=== PATIENT | female | born 1980 | race Caucasian/White ===

== ENCOUNTER 2020-01-23 18:39 | Emergency (ER) | payer BC ==
[2020-01-23] MEDS ORDERED: Lidocaine 1% MPF ** 5 ML VIAL INJ ONE (19:17)
[2020-01-23 19:45] VITALS: BP 121/80
--- NOTE | 2020-01-23 19:50 | UC ---
Laceration HPI - HPI Summary HPI Summary: 39-year-old woman comes in with chief complaint of laceration to the tip of the left thumb. Just prior to arrival she accidentally cut it with a kitchen knife while cutting vegetables. Patient reports she is up-to-date on her tetanus. Bleeding improved with direct pressure. Patient did wash out the laceration. - History Of Current Complaint Chief Complaint: UCLaceration Stated Complaint: CUT FINGER Time Seen by Provider: 01/23/20 19:01 Hx Last Menstrual Period: 01/18/2020 Pain Intensity: 2 - Allergies/Home Medications Allergies/Adverse Reactions: Allergies Allergy/AdvReac Type Severity Reaction Status Date / Time adhesive Allergy Rash Verified 01/23/20 19:08 amoxicillin Allergy Hives Verified 01/23/20 19:08 citalopram [From Celexa] Allergy Nightmares Verified 01/23/20 19:08 Home Medications: Home Medications Acetaminophen TAB* [Tylenol TAB*] 325 - 650 mg PO DAILY PRN 10/18/19 [History Confirmed 01/23/20] Albuterol HFA INHALER* [Ventolin HFA Inhaler*] 2 puff INH Q4H PRN 10/18/19 [ History Confirmed 01/23/20] Boswellia Leonila Extract 1 tab PO DAILY 10/18/19 [History Confirmed 01/23/20] Butalb/Acetamin/Caff TAB* [Fioricet TAB*] 1 - 2 tab PO DAILY PRN 10/18/19 [ History Confirmed 01/23/20] Calcium Carb/Mag Ox/Zinc Sulf [Calcium & Magnesium + Zin 334-134-5 mg] 3 tab PO DAILY 10/18/19 [History Confirmed 01/23/20] Cholecalciferol TAB* [Vitamin D TAB*] 1,000 unit PO DAILY 10/18/19 [History Confirmed 01/23/20] Cyclobenzaprine TAB* [Flexeril 10 MG TAB*] 5 mg PO DAILY 10/18/19 [History Confirmed 01/23/20] Docosahexanoic Acid [Dha Eva 3] 1 cap PO DAILY 10/18/19 [History Confirmed ] Famotidine TAB* [Pepcid 20 MG TAB*] 20 mg PO DAILY 10/18/19 [History Confirmed 01/23/20] Eva-3 Fatty Acids/Fish Oil [Fish Oil 1,000 mg Softgel] 1 cap PO DAILY [History Confirmed 01/23/20] Pnv No.95/Ferrous Fum/Folic AC [ Vitamin & Minera 28-0.8 mg] 1 tab PO DAILY 10/18/19 [History Confirmed 01/23/20] Progesterone, Micronized [Progesterone] 200 mg PO DAILY 10/18/19 [History Confirmed 01/23/20] Sertraline* [Zoloft*] 100 mg PO DAILY 10/18/19 [History Confirmed 01/23/20] Tumeric Cucumin Karolina 1 tab PO DAILY 10/18/19 [History Confirmed 01/23/20] Vitamin B Complex CAP* [B Complex CAP*] 1 cap PO DAILY 10/18/19 [History Confirmed 01/23/20] Jane Brito 1 tab PO DAILY 10/18/19 [History Confirmed 01/23/20] diPHENhydraMINE PO* [Benadryl PO 25 MG TAB*] 25 - 50 mg PO DAILY 10/18/19 [ History Confirmed 01/23/20] Ferrous Gluconate TAB* 65 mg PO DAILY 11/01/19 [History Confirmed 01/23/20] Magnesium Oxide [Magnesium] 400 mg PO DAILY 11/01/19 [History Confirmed 01/23/20 ] Cephalexin CAP* [Keflex CAP*] 500 mg PO TID #21 cap 01/23/20 [Rx] PMH/Surg Hx/FS Hx/Imm Hx Previously Healthy: Yes - Surgical History Surgical History: Yes Surgery Procedure, Year, and Place: appy, gallbladder, exploratory lap - Family History Known Family History: Positive: Non-Contributory - Social History Alcohol Use: None Substance Use Type: None Smoking Status (MU): Never Smoked Tobacco Review of Systems All Other Systems Reviewed And Are Negative: Yes Constitutional: Positive: Negative Skin: Positive: Other - SEE HPI Eyes: Positive: Negative ENT: Positive: Negative Respiratory: Positive: Negative Cardiovascular: Positive: Negative Motor: Positive: Negative Neurovascular: Positive: Negative Musculoskeletal: Positive: Negative Neurological/Mental Status: Positive: Negative Psychological: Positive: Negative Is Patient Immunocompromised?: No Physical Exam Triage Information Reviewed: Yes Appearance: Well-Appearing, No Pain Distress, Well-Nourished Vital Signs: Initial Vital Signs Temp 98.2 F 01/23/20 19:02 Pulse 79 01/23/20 19:02 Resp 16 01/23/20 19:02 BP 121/80 01/23/20 19:02 Pulse Ox 99 01/23/20 19:02 Vital Signs Reviewed: Yes Eye Exam: Normal Eyes: Positive: Conjunctiva Clear Neck: Positive: Supple Respiratory: Positive: No respiratory distress Musculoskeletal: Positive: Strength Intact, ROM Intact Neurological: Positive: Alert Psychological: Positive: Age Appropriate Behavior Skin: Positive: Other - 1.5 cm oval flap laceration of the tip of the left thumb. Thumb has full range of motion. The flap does not have good capillary refill. Laceration Repair - Laceration Repair 1 Description: Irregular - Oval flap Laceration tip of the left thumb Laceration Size After Repair: Length (cm) - 1.5 cm Modified For Repair: Yes Type Injection: Local Anesthesia Used: 1.0% Lido Irrigation With Pressure Irrigation Device: Yes Closure Material: Sutures - 4 Closure Method: Single Layer Suture Of: Skin Suture Type: Prolene - 5-0 Laceration Course/Dx - Course/Dx Course Of Treatment: The wound was clean. Discussed that if is any signs of infection she should start Keflex and if there is any concern she should get reevaluated. Sutures out in 8-10 days. - Diagnosis Provider Diagnosis: Laceration of thumb, left Discharge ED - Sign-Out/Discharge Documenting (check all that apply): Patient Departure All imaging exams completed and their final reports reviewed: No Studies - Discharge Plan Condition: Stable Disposition: HOME Prescriptions: Cephalexin CAP* [Keflex CAP*] 500 mg PO TID #21 cap Patient Education Materials: Finger Laceration (ED) Referrals: Rona Arredondo NP [Primary Care Provider] - Additional Instructions: FOLLOW UP WITH YOUR DOCTOR. Sutures out in 8-10 days. Start the antibiotics if there is any signs of infection. GET REEVALUATED IF NOT IMPROVED OR WORSE; SPREAD OF INFECTION OR ANY QUESTIONS OR CONCERNS. - Billing Disposition and Condition Condition: STABLE Disposition: Home
--- OUTSIDE RECORDS SUMMARY | 2020-01-23 19:52 | XMS REPORT | Continuity of Care Document ---
:1980 External Reference #:[id number] Author Name Yuriy Jaramillo MD (transmitted by agent of provider Diana Mason) Address [address] [place] [address] Care Team Providers Name Role Phone Rona Arredondo NP - Nurse Care Team Information Cardiac Monitor [phone] Practitioner Problems Active Problems Provider Date Asthma Trinh Bowden NP Onset: 10/07/2019 Gastroesophageal reflux disease Trinh Bowden NP Onset: 10/07/2019 Note: was on Nexium and Dexilant in 2013 time frame while in [place]; Migraine Trinh Bowden NP Onset: 10/07/2019 Pituitary adenoma Trinh Bowden NP Onset: 10/07/2019 Note: 2010 - asked her primary to "check hormones" with slight irregularity of her menses; w/u of elevated prolactin ; microadenoma and put on a med Dostinex (cabergoline) for a year by [facility]- has discussed with Dr Chatterjee and Nisha Hernandez; Hiatal hernia Trinh Bowden NP Onset: 10/07/2019 Iron deficiency Yuriy Jaramillo MD Onset: 08/18/2019 Note: very subtle with iron sat 9% 41 / 440 ferritin 58.2 this date Social History Type Date Description Comments Sex Unknown Tobacco Use Start: Unknown Never Smoked Cigarettes ETOH Use Rarely consumes alcohol Recreational Drug Use Denies Drug Use Tobacco Use Start: Unknown Patient has never smoked Smoking Status Reviewed: 01/02/20 Patient has never smoked Exercise Type/Frequency Yoga 1-2 times per week Allergies, Adverse Reactions, Alerts Active Allergies Reaction Severity Comments Date Celexa Nightmares 06/23/2019 Amoxicillin Hives 06/23/2019 Adhesive Rash 06/23/2019 Medications Active Medications SIG Qnty Indications Ordering Date Provider Omeprazole 1 by mouth in the 90caps K21.0 Yuriy T. 01/02/[address] morning 30 to 45 MD Clint minutes before breakfast Cyclobenzaprine HCL take 5mg at night 90tabs M62.838 Reji Lopez, 12/21 5mg before bedtime Tablets Fioricet Take one to two Unknown 11/02/2018 50-300-40mg capusles by mouth Capsules daily as needed Pepcid Take one tablet Unknown 11/02/2018 20mg Tablets by mouth daily Zoloft Take one tablet Unknown 11/02/2016 100mg Tablets by mouth every day Progesterone Micronized take one capsule Unknown 11/02/2014 by mouth daily 200mg Capsules Albuterol Sulfate HFA two puffs every Unknown 11/02/2014 four hours as 108(90Base) mcg/Act needed Aerosol Jane Lavell Brito Unknown Tumeric Cucumin Karolina Unknown Dha Unknown Fish Oil 1 tab by mouth Unknown 1000mg Capsules every morning Vitamin B Complex Take one tablet Unknown Tablets by mouth daily Vitamin D High Potency Take one capsule Unknown by mouth daily 1000Unit Capsules Zuagqzu-Qpvhehqcj-Fcqo 3 tablets by Unknown mouth daily 333-133-5mg Tablets Vitamin Take one tablet Unknown Tablets by mouth daily Tylenol Take 1-2 capsules Unknown 325mg Capsules by mouth as needed Benadryl Allergy Take one to two Unknown 25mg capsules by mouth Capsules daily Immunizations Description No Information Available Vital Signs Date Vital Result Comment 01/02/2020 3:56pm Height 66 inches 5'6" Weight 172.50 lb Heart Rate 79 /min BP Systolic 106 mmHg BP Diastolic 72 mmHg Respiratory Rate 16 /min O2 % BldC Oximetry 97 % BMI (Body Mass Index) 27.8 kg/m2 12/21/2019 8:36am Height 66 inches 5'6" Weight 171.00 lb Heart Rate 92 /min BP Systolic 121 mmHg BP Diastolic 74 mmHg BP Systolic Sitting 111 mmHg BP Diastolic Sitting 71 mmHg Body Temperature 96.9 F Pain Level 7 O2 % BldC Oximetry 98 % BMI (Body Mass Index) 27.6 kg/m2 Results Test Acquired Date Facility Test Result H/L Range Note Laboratory test 12/28/2019 [facility] Progesterone < 0.1 ng/mL [address] [place], [place] [id number] [phone] Laboratory test 11/01/2019 [facility] Clotest SEE RESULT [address] BEL[address] [place], [place] [id number] [phone] Surgical 11/01/2019 [facility] Surgical SEE RESULT [address] [place] [address] [phone] PDFReport SEE IMAGE Cytology 10/17/2019 [facility] Cytology SEE RESULT BELOW [address] [place] [address] [phone] PDFReport SEE IMAGE Iron & Iron Binding 10/11/2019 [facility] Iron 85 g/dL Normal 50-[address] [place], [place] [id number] [phone] Unsaturated Iron Binding < 429 g/dL Total Iron Binding Capacity 444 g/dL Normal 250-450 Transferrin 317 mg/dL Normal 203-362 % Iron Saturation 19 % Normal 15-55 Laboratory test 10/11/2019 [facility] Ferritin 31.2 Normal 11- [address] ng/mL [place], [place] [id number] [phone] CBC Auto Diff 10/11/2019 [facility] White Blood 5.6 Normal 3.5 -10.[address] Count 10^3/[place] [address] [phone] Red Blood Count 4.85 10^6/uL Normal 3.70-4.87 Hemoglobin 14.7 g/dL Normal 12.0-16.0 Hematocrit 41 % Normal 35-47 Mean Corpuscular Volume 85 fL Normal 80-97 Mean Corpuscular Hemoglobin 30 pg Normal 27-31 Mean Corpuscular HGB Conc 36 g/dL Normal 31-36 Red Cell Distribution Width 13 % Normal 10-15 Platelet Count 271 10^3/uL Normal 150-450 Mean Platelet Volume 7.5 fL Normal 7.4-10.4 Abs Neutrophils 3.1 10^3/uL Normal 1.5-7.7 Abs Lymphocytes 2.0 10^3/uL Normal 1.0-4.8 Abs Monocytes 0.4 10^3/uL Normal 0-0.8 Abs Eosinophils 0.1 10^3/uL Normal 0-0.6 Abs Basophils 0.1 10^3/uL Normal 0-0.2 Abs Nucleated RBC 0.0 10^3/uL Granulocyte % 55.5 % Lymphocyte % 35.8 % Monocyte % 6.7 % Eosinophil % 0.9 % Basophil % 1.1 % Nucleated Red Blood Cells % 0.1 Laboratory test 10/11/2019 [facility] C Reactive 2.35 mg/L Normal <8.[address] [place] [address] [phone] Erythrocyte Sed Rate 10 mm/Hr Normal 0-19 Urinalysis Profile 10/11/2019 [facility] Urine Color Denise [address] [place] [address] [phone] Urine Appearance Cloudy Urine Specific Hutchinson 1.009 Low 1.010-1.030 Urine pH 6.0 Normal 5-9 Urine Urobilinogen Negative Negative Urine Ketones Negative Negative Urine Protein Negative Negative Urine Leukocytes Negative Negative Urine Blood 3+ Abnormal Negative Urine Nitrite Negative Negative Urine Bilirubin Negative Negative Urine Glucose Negative Negative Urine White Blood Cell Absent Absent Urine Red Blood Cell 3+(>10/hpf) Abnormal Absent Urine Bacteria Absent Absent Urine Squamous Epithelial Cell Present Abnormal Absent Protein 10/11/2019 [facility] Total 7.2 g/dL 6.3 - Electrophoresis [address] Protein(Pep) 7.9 [place] [address] [phone] Albumin 3.7 g/dL 3.4-4.7 Alpha-1 Globulin 0.3 g/dL 0.1-0.3 Alpha-2 Globulin 0.9 g/dL 0.6-1.0 Beta Globulin 1.0 g/dL 0.7-1.2 Gamma Globulin 1.3 g/dL 0.6-1.6 Albumin/Globulin Ratio 1.05 Impression See Comment 5 CBC Auto 08/18/2019 [facility] White Blood 8.7 10^3/uL Normal 3.5-10.[address] [place] [address] [phone] Red Blood Count 5.02 10^6/uL High 3.70-4.87 Hemoglobin 15.2 g/dL Normal 12.0-16.0 Hematocrit 44 % Normal 35-47 Mean Corpuscular Volume 87 fL Normal 80-97 Mean Corpuscular Hemoglobin 30 pg Normal 27-31 Mean Corpuscular HGB Conc 35 g/dL Normal 31-36 Red Cell Distribution Width 12 % Normal 10-15 Platelet Count 227 10^3/uL Normal 150-450 Mean Platelet Volume 7.7 fL Normal 7.4-10.4 Abs Neutrophils 7.1 10^3/uL Normal 1.5-7.7 Abs Lymphocytes 0.9 10^3/uL Low 1.0-4.8 Abs Monocytes 0.6 10^3/uL Normal 0-0.8 Abs Eosinophils 0.1 10^3/uL Normal 0-0.6 Abs Basophils 0.0 10^3/uL Normal 0-0.2 Abs Nucleated RBC 0.0 10^3/uL Granulocyte % 80.9 % Lymphocyte % 10.6 % Monocyte % 7.4 % Eosinophil % 0.7 % Basophil % 0.4 % Nucleated Red Blood Cells % 0.0 Laboratory test 08/18/2019 [facility] Hemoglobin A1c 5.1 % Normal 4.0-5.6 [address] (Glyco HGB) [place] [address] [phone] Comp Metabolic 08/18/2019 [facility] Sodium 138 Normal 135- [address] mmol/[place] [address] [phone] Potassium 3.8 mmol/L Normal 3.5-5.0 Chloride 103 mmol/L Normal 101-111 Co2 Carbon Dioxide 28 mmol/L Normal 22-32 Anion Gap 7 mmol/L Normal 2-11 Calcium 9.6 mg/dL Normal 8.6-10.3 Albumin 4.4 g/dL Normal 3.2-5.2 Total Bilirubin 0.50 mg/dL Normal 0.2-1.0 Glucose 85 mg/dL Normal 70-100 Blood Urea Nitrogen 13 mg/dL Normal 6-24 Creatinine 0.67 mg/dL Normal 0.51-0.95 BUN/Creatinine Ratio 19.4 Normal 8-20 Total Protein 7.6 g/dL Normal 6.4-8.9 Globulin 3.2 g/dL Normal 2-4 Albumin/Globulin Ratio 1.4 Normal 1-3 Alkaline Phosphatase 65 U/L Normal 34-104 Alt 24 U/L Normal 7-52 Ast 17 U/L Normal 13-39 Egfr Non- 98.5 >60 Egfr 119.2 >60 7 Lipid Profile 08/18/2019 [facility] Triglycerides 78 mg/dL 8 (Trig/Chol/HDL) [address] [place] [address] [phone] Cholesterol 161 mg/dL 9 HDL Cholesterol 57.8 mg/dL 10 LDL Cholesterol 88 mg/dL 11 Iron & Iron Binding 08/18/2019 [facility] Iron 41 g/dL Low 50-[address] [place] [address] [phone] Unsaturated Iron Binding < 425 g/dL Total Iron Binding Capacity 440 g/dL Normal 250-450 Transferrin 314 mg/dL Normal 203-362 % Iron Saturation 9 % Low 15-55 Laboratory test 08/18/2019 [facility] CRP High 33.60 mg/L High <2.00 finding [address] [place] [address] [phone] TSH (Thyroid Stim Horm) 0.97 mcIU/mL Normal 0.34-5.60 Free T4 (Free Thyroxine) 0.83 ng/dL Normal 0.61-1.12 Thyroxine 7.64 g/dL Normal 6.09-12.23 T3 Free 3.90 pg/mL Normal 2.5-3.9 T3 Total 107 ng/dL Normal 87-178 Ferritin 58.2 ng/mL Normal 11-307 Thyroid 08/18/2019 [facility] Thyroid 0.84 Normal <9 Autoantibodies 101 Peroxidase IU/[place] [address] Antibodies [phone] Thyroglobulin Antibody II 0.0 IU/mL <4.0 Laboratory test 08/18/2019 [facility] Folic Acid > 20.00 > 3.99 finding 101 (Folate) ng/[place] [address] [phone] Vitamin B12 871 pg/mL Normal 180-914 12 Insulin Level 10.3 mcIU/mL Normal 2.0-16.0 Vitamin D Total 25(Oh) 30.1 ng/mL Normal 20-50 13 Magnesium 2.0 mg/dL Normal 1.9-2.7 Arthritis Panel 08/18/2019 [facility] Uric Acid 5.4 mg/dL Normal 2.3-6.[address] [place] [address] [phone] Rheumatoid Factor < 10 IU/mL Normal <15 Erythrocyte Sed Rate 39 mm/Hr High 0-19 Anti-Nuclear Antibody 0.1 U 14 Cyclic Citrullinated Peptide <15.6 U 15 Interpretation See Comment 16 Laboratory test 08/18/2019 [facility] Methylmalonic 0.18 <= 0.[address] Acid Mma nmol/[place] [address] [phone] Homocysteine 6 mcmol/L 18 Heavy Metal Blool 08/18/2019 [facility] Arsenic <1 ng/mL 0- [address] [place] [address] [phone] Lead <1.0 g/dL 0.0-4.9 20 Mercury <1 ng/mL 0-9 21 Cadmium 0.3 ng/mL 0.0-4.[address] [facility] <SEE NOTE> 23 [facility] [id number] [place] [address] Guardian First Name CHERELLE Ramos Guardian Last Name CHUYITA Venous/Capillary Heavy Metals Venous Patient Race WHITE Submitting Laboratory 24 Laboratory test 08/18/2019 [facility] Copper, 1.33 g/mL 0.75-1.45 25 finding [address] [place] [address] [phone] Zinc Serum 0.78 g/mL 0.66-1.10 26 Vitamin B1 (Whole Blood) 145 nmol/L 70-180 27 T3 Reverse 20 ng/dL 10-24 28 Vitamin B6 08/18/2019 [facility] Pyridoxal 5-Phosphate 10 g/L 5-[address] [place] [address] [phone] Pyridoxic Acid 8 g/L 3-30 30 Celiac Hla 08/18/2019 [facility] Hla-Dqa1 SEE BELOW [address] [place] [address] [phone] [id number]-[id number] SEE BELOW 32 Celiac Gene Pairs Present? No Celiac Gene Interpretation See Comment 33 MTHFR 08/18/2019 [facility] MTHFR C677T Heterozygous Abnormal Negative Mutation [address] Mutation Detection [place], [place] [address] [phone] MTHFR Interpretation See Comment 34 MTHFR Reviewed By See Comment 35 MTHFR [id number] Mutation Heterozygous Abnormal Negative Mthac Interpretation See Comment 36 Mthac Reviewed By See Comment 37 1 Female reference ranges for Progesterone: Follicular phase.......0.3 - 1.5 ng/ml Mid-luteal phase.......5.2 - 18.5 ng/ml Postmenopausal.........< 0.8 ng/ml 1st trimester.........4.7 - 50.0 ng/ml 2nd trimester.........19.4 - 45.3 ng/ml 2 SEE RESULT BELOW Name: CHERELLE BOOGIE Rachel : [address]: Yuriy Jaramillo MD Acct: [id number] Unit: [id number] AGE: 39 Location: ENDO Re11/01/19 SEX: F Status: REG REF SPEC: [id number] DYAN: 11/01/[address]: Yuriy Jaramillo MD REQ: [id number] RECD: 11/01/193679 STATUS: ADRIANA SALGADO DR: Rona Arredondo RECORDS ASSOCIATE _ SOURCE: GAS ANTRUM SPDESC: ORDERED: Clotest Procedure Result Reported Site Clotest Final 11/02/19- 0700 ML Clotest Negative * ML - Main Lab . END OF REPORT DEPARTMENT OF PATHOLOGY, [address] [place] [address] Rex Guy M.D. Director [facility] # [id number] 3 SEE RESULT BELOW Name: TYRONECHERELLE CHILDS Rachel : [address]: Yuriy Jaramillo MD Acct: [id number] Unit: [id number] AGE: 39 Location: ENDO Re11/01/19 SEX: F Status: DEP REF SPEC: [id number] DYAN: 11/01/[address] [facility] [address]: Yuriy Jaramillo MD REQ: [id number] RECD: 11/01/196 STATUS: CASSIE SALGADO DR: Rona Arredondo RECORDS ASSOCIATE _ ORDERED: LEVEL 4/2 ADDENDUM An H. pylori immunohistochemical stain, with appropriately reacting controls , was performed on sections cut from specimen 2 and is negative for Helicobacter organisms. Addendum Signed (signature on file) Trupti Keyes MD 01/19 1115 FINAL DIAGNOSIS 1. Duodenum, third portion, biopsy: -- Benign small intestinal mucosa with no significant pathologic abnormalities. -- No evidence of villous blunting or increased intraepithelial lymphocytes. 2. Stomach, body, biopsy: -- Body-type gastric mucosa with moderate chronic gastritis; see comment. COMMENT: An H. pylori immunohistochemical stain is pending for specimen 2 and the results will be reported in an addendum. CLINICAL HISTORY Pain left costal margin - post easting; heartburn CONTINUED ON NEXT PAGE DEPARTMENT OF PATHOLOGY, [address] [place] [address] Rex Guy M.D. Director [facility] # [id number] POST-OPERATIVE DIAGNOSIS EGD: larynx - normal; esophagus - erosions at 36 cm; loose small wide hiatal hernia; stomach - antral gastritis; bile in FGP's; duodenum - normal; conclusions: hiatal hernia; gastroesophageal reflux disease; gastritis; multiple symptoms GROSS DESCRIPTION 1. The specimen is received in formalin labeled, Biopsy Third Portion Duodenum, and consists of two powell-pink irregular to polypoid soft tissue fragments measuring 0.7 x 0.4 x 0.3 cm and 0.9 x 0.4 x 0.3 cm, which are entirely submitted in one cassette. 2. The specimen is received in formalin labeled, Biopsy Gastric Body, and consists of two powell-pink irregular to polypoid soft tissue fragments measuring 2.8 x 0.4 x 0.2 cm and 0.9 x 0.3 x 0.3 cm, which are entirely submitted in one cassette. Signed by and Reported on: Trupti Keyes MD 11/03/19 1232 END OF REPORT DEPARTMENT OF PATHOLOGY, [address] [place] [address] Rex Guy M.D. Director [facility] # [id number] 4 SEE RESULT BELOW Name: CHERELLE BOOGIE : [address]: Jerson Chatterjee MD Acct: [id number] Unit: [id number] AGE: 38 Location: [facility] Re10/17/19 SEX: F Status: REG REF SPEC: [id number] DYAN: 10/17/[address]: Jerson Chatterjee MD REQ: [id number] RECD: 10/17/19 STATUS: SOUT _ ORDERED: TP IMAGE ANALYS, HPV/Thin Prep, HPV 16/18 GENE COMMENTS: [id number] FINAL DIAGNOSIS Negative for Intraepithelial lesion or Malignancy HPV RESULTS Date Time Test Result Flag (u) Normal Range 10/17/19 1600 HPV HAWA RFLX GE Negative Negative The high-risk HPV types detected by the assay include: 16, 18, 31, 33, 35, 39, 45, 51, 52, 56, 58, 59, 66, and 68. SPECIMEN(S) RECEIVED A. Ectocervical/Endocervical CYTOLOGY ADEQUACY Specimen Adequacy: Satisfactory of evaluation Transformation zone component identified CONTINUED ON NEXT PAGE DEPARTMENT OF PATHOLOGY, [address] [place] [address] Rex Guy M.D. Director [facility] # [id number] CYTOLOGY PATIENT INFORMATION Patient Information: HPV: High risk HPV RNA testing regardless of pap results. HPV 16/18 Genotype Reflex Actual Specimen Date: 10/17/19 Last Menstrual Date: 10/08/19 ?: N Post Menopausal?: N Hysterectomy?: N Previous Abnormal Pap Smears?:N Signed by and Reported on: LIAM Donnelly (ASCP) 2533 This Pap test was evaluated with the assistance of the [employer] Test Imaging System. Due to cytologic findings at the liability claims examiner microscope, comprehensive manual rescreening by a Airways Control Specialist may be required. The Pap Smear is a screening test designed to aid in the detection of premalignant and malignant conditions of the uterine cervix. It is not a diagnostic procedure and should not be used as the sole means of detecting cervical cancer. Both false- positive and false- negative reports do occur. Depending on your risk status, a Pap smear should be obtained and evaluated every 1-3 years. END OF REPORT DEPARTMENT OF PATHOLOGY, [address] [place] [address] Rex Guy M.D. Director [facility] # [id number] 5 RESULT: No apparent monoclonal protein on serum electrophoresis. Test Performed by: [place] [address] Airport Tower Controller: Danny Shah M.D. Ph.D.; CLIA# [id number] 6 Therapeutic target for the treatment of diabetes mellitus patients is <7% HBA1C, and in selective patients <6.0%. Please refer to [place] Diabetes Association diabetic care guidelines for further information. 7 Because ethnic data is not always readily available, this report includes an eGFR for both -Americans and non- Americans. The National Kidney Disease Education Program (NKDEP) does not endorse the use of the MDRD equation for patients that are not between the ages of 18 and 70, are , have extremes of body size, muscle mass, or nutritional status, or are non- or non-. According to the National Kidney Foundation, irrespective of diagnosis, the stage of the disease is based on the level of kidney function: Stage Description GFR(mL/min/1.73 m(2)) 1 Kidney damage with normal or decreased GFR 90 2 Kidney damage with mild decrease in GFR 60-89 3 Moderate decrease in GFR 30-59 4 Severe decrease in GFR 15-29 5 Kidney failure <15 (or dialysis) 8 Desirable: <150 Borderline High: 150-199 High: 200-499 Very High: >500 9 Desirable: <200 Borderline High: 200-239 High: >239 10 Low: <40 Desirable: 40-60 High: >60 11 Desirable: <100 Near Optimal: 100-129 Borderline High: 130-159 High: 160-189 Very High: >189 12 Normal Range 180 to 914 Indeterminate Range 145 to 180 Deficient Range <145 13 Total 25-Hydroxyvitamin D2 and D3 (25-OH-VitD) <10 ng/mL (severe deficiency) 10-19 ng/mL (mild to moderate deficiency) 20-50 ng/mL (optimum levels) 51-80 ng/mL (increased risk of hypercalciuria) >80 ng/mL (toxicity possible) 14 REFERENCE VALUE <=1.0 (Negative) 15 REFERENCE VALUE <20.0 (Negative) 16 Tests for antibodies to dsDNA and JESSICA antigens are not performed automatically unless the MAX result is > or = 3.0 U. Studies performed at [facility] indicate that positive MAX results <3.0 U are rarely accompanied by positive second order tests. Test Performed by: [facility] - [facility] [address] [place] [address] Airport Tower Controller: Danny Shah M.D. Ph.D.; CLIA# [id number] 17 ADDITIONAL INFORMATION This test was developed and its performance characteristics determined by [facility] in a manner consistent with CLIA requirements. This test has not been cleared or approved by the U.S. Food and Drug Administration. Test Performed by: [facility] - [address] [address] Airport Tower Controller: Danny Shah M.D. Ph.D.; CLIA# [id number] 18 REFERENCE VALUE <=13 (Fasting) ADDITIONAL INFORMATION This test was developed and its performance characteristics determined by [facility] in a manner consistent with CLIA requirements. This test has not been cleared or approved by the U.S. Food and Drug Administration. Test Performed by: [facility] - [address] [address] Airport Tower Controller: Danny Shah M.D. Ph.D.; CLIA# [id number] 19 ADDITIONAL INFORMATION This test was developed and its performance characteristics determined by [facility] in a manner consistent with CLIA requirements. This test has not been cleared or approved by the U.S. Food and Drug Administration. 20 ADDITIONAL INFORMATION Testing performed by Inductively Coupled Plasma-Mass Spectrometry (ICP-MS). This test was developed and its performance characteristics determined by [facility] in a manner consistent with CLIA requirements. This test has not been cleared or approved by the U.S. Food and Drug Administration. 21 ADDITIONAL INFORMATION This test was developed and its performance characteristics determined by [facility] in a manner consistent with CLIA requirements. This test has not been cleared or approved by the U.S. Food and Drug Administration. 22 ADDITIONAL INFORMATION This test was developed and its performance characteristics determined by [facility] in a manner consistent with CLIA requirements. This test has not been cleared or approved by the U.S. Food and Drug Administration. 23 13 [employer] vascular solution 24 Test Performed by: [facility] [place] [address] Airport Tower Controller: Danny Shah M.D. Ph.D.; CLIA# [id number] 25 ADDITIONAL INFORMATION This test was developed and its performance characteristics determined by [facility] in a manner consistent with CLIA requirements. This test has not been cleared or approved by the U.S. Food and Drug Administration. Test Performed by: [facility] [place] [address] Airport Tower Controller: Danny Shah M.D. Ph.D.; CLIA# [id number] 26 ADDITIONAL INFORMATION This test was developed and its performance characteristics determined by [facility] in a manner consistent with CLIA requirements. This test has not been cleared or approved by the U.S. Food and Drug Administration. Test Performed by: [facility] [place] [place] [address] Airport Tower Controller: Danny Shah M.D. Ph.D.; CLIA# [id number] 27 ADDITIONAL INFORMATION This test was developed and its performance characteristics determined by [facility] in a manner consistent with CLIA requirements. This test has not been cleared or approved by the U.S. Food and Drug Administration. Test Performed by: [facility] [place] [address] Airport Tower Controller: Danny Shah M.D. Ph.D.; CLIA# [id number] 28 ADDITIONAL INFORMATION This test was developed and its performance characteristics determined by [facility] in a manner consistent with CLIA requirements. This test has not been cleared or approved by the U.S. Food and Drug Administration. Test Performed by: [facility] - [address] [address] Airport Tower Controller: Danny Shah M.D. Ph.D.; CLIA# [id number] 29 ADDITIONAL INFORMATION This test was developed and its performance characteristics determined by [facility] in a manner consistent with CLIA requirements. This test has not been cleared or approved by the U.S. Food and Drug Administration. 30 ADDITIONAL INFORMATION This test was developed and its performance characteristics determined by [facility] in a manner consistent with CLIA requirements. This test has not been cleared or approved by the U.S. Food and Drug Administration. Test Performed by: [facility] - [address] [address] Airport Tower Controller: Danny Shah M.D. Ph.D.; CLIA# [id number] 31 RESULT: 05,05 REFERENCE VALUE Not Applicable 32 RESULT: 03:01,03:01 DQ Serologic Equivalent: 7,7 REFERENCE VALUE Not Applicable 33 The absence of HLA celiac permissive genes would make the presence of celiac disease unlikely. ADDITIONAL INFORMATION Method: Molecular typing of HLA antigens performed using reverse SSOP and/or SSP methods, reported as serological equivalents and low to medium resolution molecular values. Test Performed by: [facility] - [address] [address] Airport Tower Controller: Danny Shah M.D. 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 MTHFR C677T carriers are not at increased risk for thrombosis in the absence of hyperhomocysteinemia. In the absence of alternative causes, heterozygous carriers of MTHFR C677T are not at increased risk for hyperhomocysteinemia. Hyperhomocysteinemia is a relatively weak risk factor for both venous thromboembolism and arterial thrombosis. The MTHFR C677T gene mutation test does not detect other causes of hyperhomocysteinemia due to acquired disorders (renal failure, zinc deficiency, leukemia, psoriasis, or antifolate drug therapy). If clinically indicated, suggest Coagulation Consultation 53251 (Thrombophila Profile) to complete the evaluation for an inherited or acquired thrombosing disorder (i.e., thrombophilia). Consider genetic consultation and counseling of potentially affected family members regarding laboratory testing. ADDITIONAL INFORMATION This test is a direct mutation analysis using PCR amplification, signal generation and release by cleavage of sequence specific alleles ([employer], [place], [place], [place]). This test has been modified from the frog catcher's instructions. Its performance characteristics were determined by [facility] in a manner consistent with CLIA requirements. This test has not been cleared or approved by the U.S. Food and Drug Administration. 35 RESULT: Natalia Pruitt M.D. 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 MTHAC T3335V carriers are not at increased risk for thrombosis in the absence of hyperhomocysteinemia. In the absence of alternative causes, heterozygous carriers of MTHAC M7171R are not at increased risk for hyperhomocysteinemia. Hyperhomocysteinemia is a relatively weak risk factor for both venous thromboembolism and arterial thrombosis. The MTHAC A0492V gene mutation test does not detect other causes of hyperhomocysteinemia due to acquired disorders (renal failure, zinc deficiency, leukemia, psoriasis, or antifolate drug therapy). If clinically indicated, suggest Coagulation Consultation 37170 (Thrombophila Profile) to complete the evaluation for an inherited or acquired thrombosing disorder (i.e., thrombophilia). Consider genetic consultation and counseling of potentially affected family members regarding laboratory testing. ADDITIONAL INFORMATION This test is a direct mutation analysis using PCR amplification, signal generation and release by cleavage of sequence specific alleles ([employer], [place], [place], [place]). This test has been modified from the frog catcher's instructions. Its performance characteristics were determined by [facility] in a manner consistent with CLIA requirements. This test has not been cleared or approved by the U.S. Food and Drug Administration. 37 RESULT: Natalia Pruitt M.D. This test is a direct mutation analysis using PCR amplification, signal generation and release by cleavage of sequence specific alleles ([employer], [place], [place], [place]). This test has been modified from the frog catcher's instructions. Its performance characteristics were determined by [facility] in a manner consistent with CLIA requirements. This test has not been cleared or approved by the U.S. Food and Drug Administration. Test Performed by: [place] [address] [employer] Controller: Danny Shah M.D. Ph.D.; CLIA# [id number] Procedures Date Code Description Status 12/21/2019 40111 Trigger PT Inj(S) Single Or Multiple Points 1 Or 2 Completed Muscles 11/01/2019 91582 Endoscopy Upper GI Biopsy Completed 11/01/2019 02132248 Colonoscopy Completed Medical Devices Description No Information Available Encounters Type Date Location Provider Dx Diagnosis Office Visit 01/02/2020 [facility] Yuriy Meraz K21.0 Gastro- esophageal 3:45p MD Clint reflux disease with esophagitis K44.9 Diaphragmatic hernia without obstruction or gangrene M79.7 Fibromyalgia Office Visit 12/21/2019 11:00a [facility] Raquel Hernandez NP M79.7 Fibromyalgia [facility] R14.0 Abdominal distension (gaseous) N80.9 Endometriosis, unspecified E72.12 Methylenetetrahydrofolate reductase deficiency F32.81 Premenstrual dysphoric disorder K21.9 Gastro-esophageal reflux disease without esophagitis Office Visit 12/02/2019 11:30a [facility] Sen, R10.32 Left lower [facility] quadrant pain N94.6 Dysmenorrhea, unspecified N92.0 Excessive and frequent menstruation with regular cycle N80.9 Endometriosis, unspecified Office Visit 11/07/2019 11:00a [facility] Haider Camacho, S76.112A Strain of left at [place] M.D. 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 [facility] MD Sen exam (general) (routine) w/o abn findings R10.32 Left lower quadrant pain Office 10/07/2019 [facility] Trinh K21.0 Gastro-esophageal Visit 9:15a [place] reflux disease with ADRIANA Bowden esophagitis D64.9 Anemia, unspecified R10.84 Generalized abdominal pain Office Visit 09/09/2019 11:00a [facility] Reji Lopez, M54.2 [facility] M62.838 Other muscle spasm M79.7 Fibromyalgia R70.0 Elevated erythrocyte sedimentation rate D50.9 Iron deficiency anemia, unspecified Office Visit 08/19/2019 9:00a [facility] Raquel Hernandez, G89.4 Chronic pain [facility] RECORDS ASSOCIATE syndrome R53.82 Chronic fatigue, unspecified Assessments Date Code Description Provider 01/02/2020 K21.0 Gastro-esophageal reflux disease with Yuriy Jaramillo MD esophagitis 01/02/2020 K44.9 Diaphragmatic hernia without obstruction Yuriy Jaramillo MD or gangrene 01/02/2020 M79.7 Fibromyalgia Yuriy Jaramillo MD 12/21/2019 M79.7 Fibromyalgia Raquel Hernandez NP 12/21/2019 M62.838 Other muscle spasm Reji Lopez MD 12/21/2019 R14.0 Abdominal distension (gaseous) Raquel Hernandez NP 12/21/2019 M79.7 Fibromyalgia Reji Lopez MD 12/21/2019 N80.9 Endometriosis, unspecified Raquel Hernandez NP 12/21/2019 E72.12 Methylenetetrahydrofolate reductase Raquel Hernandez NP deficiency 12/21/2019 F32.81 Premenstrual dysphoric disorder Raquel Hernandez NP 12/21/2019 K21.9 Gastro-esophageal reflux disease without Raquel Hernandez NP esophagitis 12/02/2019 R10.32 Left lower quadrant pain Jerson Chatterjee MD 12/02/2019 N94.6 Dysmenorrhea, unspecified Jerson Chatterjee MD 12/02/2019 N92.0 Excessive and frequent menstruation with Jerson Chatterjee MD regular cycle 12/02/2019 N80.9 Endometriosis, unspecified Jerson Chatterjee MD 11/16/2019 G89.4 Chronic pain syndrome Raquel Hernandez NP 11/07/2019 S76.112A Strain of left quadriceps muscle, fascia Haider Camacho M.D. and tendon, initial encounter 11/01/2019 K29.50 Unspecified chronic gastritis without Yuriy Jaramillo MD bleeding 11/01/2019 K21.0 Gastro-esophageal reflux disease with Yuriy Jaramillo MD esophagitis 11/01/2019 K44.9 Diaphragmatic hernia without obstruction Yuriy Jaramillo MD or gangrene 10/17/2019 Z01.419 Encounter for gynecological examination Jerson Chatterjee MD (general) (routine) without abnormal findings 10/17/2019 R10.32 Left lower quadrant pain Jerson Chatterjee MD 10/07/2019 K21.0 Gastro-esophageal reflux disease with Trinh Bowden esophagitis RECORDS ASSOCIATE 10/07/2019 D64.9 Anemia, unspecified Trinh Bowden NP 10/07/2019 R10.84 Generalized abdominal pain Trinh Bowden NP 09/09/2019 M54.2 Neck pain Reji Lopez MD 09/09/2019 M62.838 Muscle spasms of head And/Or neck Reji Lopez MD 09/09/2019 M79.7 Fibromyalgia Reji Lopez MD 09/09/2019 R70.0 Esr raised Reji Lopez MD 09/09/2019 D50.9 Iron deficiency anemia Reji Lopez MD 08/19/2019 G89.4 Chronic pain syndrome Raquel Hernandez NP 08/19/2019 R53.82 Chronic fatigue, unspecified Raquel Hernandez NP Plan of Treatment Future Appointment(s):04/02/2020 3:45 pm - Yuriy Jaramillo MD at [facility] Bjusfcoaiqsxvjjw82/25/2020 8:00 am - Raquel Hernandez NP at [facility]02/22/2020 8:00 am - Reji Lopez MD at [facility]10/22/2020 9:30 am - Jerson Chatterjee MD at [facility]01/02/2020 - Yuriy Jaramillo MDK21.0 Gastro-esophageal reflux disease with esophagitisNew Medication:Omeprazole 40 mg - 1 by mouth in the morning 30 to 45 minutes before umgfhkrwoZ71.9 Diaphragmatic hernia without obstruction or ierdxcntV94.7 Fibromyalgia Functional Status Description No Information Available Mental Status Description No Information Available Referrals Refer to Dr Reason for Referral Status Appt Date Yuriy Jaramillo MD History of gastric ulcer with ongoing GERD Sent 2018 symptoms and iron deficiency anemia; please evaluate and treat [address] [place] [address] [phone] Anastacio Hillman MD Sent 09/09/[address] [place] [address] [place] [address] [phone]
--- OUTSIDE RECORDS SUMMARY | 2020-01-23 19:52 | XMS REPORT | Continuity of Care Document ---
:1980 External Reference #:[id number] Author Name Reji Lopez MD (transmitted by agent of provider Sherly Warren) Address [address] [place] [id number] Care Team Providers Name Role Phone Rona Arredondo NP - Nurse Care Team Information Mine Promotor [phone] Practitioner Problems Active Problems Provider Date Asthma Trinh Bowden NP Onset: 10/07/2019 Gastroesophageal reflux disease Trinh Bowden NP Onset: 10/07/2019 Anemia Trinh Bowden NP Onset: 10/07/2019 Migraine Trinh Bowden NP Onset: 10/07/2019 Pituitary adenoma Trinh Bowden NP Onset: 10/07/2019 Note: microadenoma Hiatal hernia Trinh Bowden NP Onset: 10/07/2019 Social History Type Date Description Comments Sex Unknown Tobacco Use Start: Unknown Never Smoked Cigarettes ETOH Use Rarely consumes alcohol Recreational Drug Use Denies Drug Use Tobacco Use Start: Unknown Patient has never smoked Smoking Status Reviewed: 12/21/19 Patient has never smoked Exercise Type/Frequency Yoga 1-2 times per week Allergies, Adverse Reactions, Alerts Active Allergies Reaction Severity Comments Date Celexa Nightmares 06/23/2019 Amoxicillin Hives 06/23/2019 Adhesive Rash 06/23/2019 Medications Active Medications SIG Qnty Indications Ordering Date Provider Cyclobenzaprine HCL take 5mg at 90tabs M62.838 Reji Lopez, 12/21/2019 5mg night before MD Tablets bedtime Fioricet Take one to two Unknown 11/02/2018 50-300-40mg capusles by Capsules mouth daily as needed Pepcid Take one tablet [...] by mouth Unknown 1000mg Capsules every morning Cyclobenzaprine HCL Armas, Nhi 5mg A, N.P. Tablets Vitamin B Complex Take one tablet Unknown Tablets by mouth daily Vitamin D High Potency Take one capsule Unknown by mouth daily 1000Unit Capsules Hrmuuzp-Kdrvmmisl-Rnnd 3 tablets by Unknown mouth daily 333-133-5mg Tablets Vitamin Take one tablet Unknown Tablets by mouth daily Tylenol Take 1-2 Unknown 325mg Capsules capsules by mouth as needed Benadryl Allergy Take one to two Unknown 25mg capsules by Capsules mouth daily Immunizations Description No Information Available Vital Signs Date Vital Result Comment 12/21/2019 8:36am Height 66 inches 5'6" Weight 173.00 lb Heart Rate 92 /min BP Systolic 121 mmHg BP Diastolic 74 mmHg Body Temperature 96.9 F Pain Level 7 O2 % BldC Oximetry 98 % BMI (Body Mass Index) 27.9 kg/m2 12/02/2019 11:40am Height 66 inches 5'6" Weight 175.00 lb Heart Rate 96 /min BP Systolic 114 mmHg BP Diastolic 70 mmHg O2 % BldC Oximetry 97 % BMI (Body Mass Index) 28.2 kg/m2 Results Test Acquired Date Facility Test Result H/L Range Note Laboratory test 11/01/2019 [facility] Clotest SEE RESULT [address] [place] [address] [phone] Surgical 11/01/2019 [facility] Surgical SEE RESULT [address] [place] [address] [phone] PDFReport SEE IMAGE Cytology 10/17/2019 [facility] Cytology SEE RESULT BELOW [address] [place] [address] [phone] PDFReport SEE IMAGE Iron & Iron Binding 10/11/2019 [facility] Iron 85 g/dL Normal 50-[address] [place] [address] [phone] Unsaturated Iron Binding < 429 g/dL Total Iron Binding Capacity 444 g/dL Normal 250-450 Transferrin 317 mg/dL Normal 203-362 % Iron Saturation 19 % Normal 15-55 Laboratory test 10/11/2019 [facility] Ferritin 31.2 Normal 11- [address] ng/[place] [address] [phone] CBC Auto Diff 10/11/2019 [facility] White Blood 5.6 Normal 3.5 -10.[address] Count 10^3/[place] [address] [phone] Red Blood Count 4.85 10^6/uL Normal 3.70-4.87 [...] Blood Cells % 0.1 Laboratory test 10/11/2019 [facility] C Reactive 2.35 mg/L Normal <8.[address] [place] [address] [phone] Erythrocyte Sed Rate 10 mm/Hr Normal 0-19 Urinalysis Profile 10/11/2019 [facility] Urine Color [address] [address] [place] [address] [phone] Urine Appearance Cloudy Urine Specific [place] 1.009 Low 1.010-1.030 Urine pH 6.0 Normal [...] Epithelial Cell Present Abnormal Absent Protein 10/11/2019 [facility] Total 7.2 g/dL 6.3 - Electrophoresis [address] Protein(Pep) 7.9 [place] [address] [phone] Albumin 3.7 g/dL 3.4-4.7 Alpha-1 Globulin 0.3 g/dL 0.1-0.3 Alpha-2 Globulin 0.9 g/dL 0.6-1.0 Beta Globulin 1.0 g/dL 0.7-1.2 Gamma Globulin 1.3 g/dL 0.6-1.6 Albumin/Globulin Ratio 1.05 Impression See Comment 4 MTHFR 08/18/2019 [facility] MTHFR C677T Heterozygous Abnormal Negative Mutation [address] [place] [address] [phone] MTHFR Interpretation See Comment 5 MTHFR Reviewed By See Comment 6 MTHFR R7035a Mutation Heterozygous Abnormal Negative Mthac Interpretation See Comment 7 Mthac Reviewed By See Comment 8 Celiac Hla 08/18/2019 [facility] Hla-Dqa1 SEE BELOW [address] [place] [address] [phone] Hla-DQB1 SEE BELOW 10 Celiac Gene Pairs Present? No Celiac Gene Interpretation See Comment 11 Vitamin B6 08/18/2019 [facility] Pyridoxal 5-Phosphate 10 g/L 5-[address] [place] [address] [phone] Pyridoxic Acid 8 g/L 3-30 13 Laboratory test 08/18/2019 [facility] Copper, 1.33 g/mL 0.75-1.[address] [place] [address] [phone] Zinc Serum 0.78 g/mL 0.66-1.10 15 Vitamin B1 (Whole Blood) 145 nmol/L 70-180 16 T3 Reverse 20 ng/dL 10-24 17 Heavy Metal Blool 08/18/2019 [facility] Arsenic <1 ng/mL 0- [address] [place] [address] [phone] Lead <1.0 g/dL 0.0-4.9 19 Mercury <1 ng/mL 0-9 20 Cadmium 0.3 ng/mL 0.0-4.[address] <SEE NOTE> [facility] [place] [address] [facility] Guardian First Name CHERELLE Ramos Guardian Last Name HCUYITA Venous/Capillary Heavy Metals Venous Patient Race WHITE Submitting Laboratory 23 Laboratory test 08/18/2019 [facility] Methylmalonic 0.18 <= 0.40 24 [address] [facility] Acid Mma nmol/[place] [address] [phone] Homocysteine 6 mcmol/L 25 Arthritis Panel 08/18/2019 [facility] Uric Acid 5.4 mg/dL Normal 2.3-6.[address] [place] [address] [phone] Rheumatoid Factor < 10 IU/mL Normal <15 Erythrocyte Sed Rate 39 mm/Hr High 0-19 Anti-Nuclear Antibody 0.1 U 26 Cyclic Citrullinated Peptide <15.6 U 27 Interpretation See Comment 28 CBC Auto 08/18/2019 [facility] White Blood 8.7 10^3/uL Normal 3.5-10.[address] [place] [address] [phone] Red Blood Count 5.02 10^6/uL High 3.70-4.87 [...] Blood Cells % 0.0 Laboratory test 08/18/2019 [facility] Hemoglobin A1c 5.1 % Normal 4.0-5.[address] (Glyco HGB) [place] [address] [phone] Comp Metabolic 08/18/2019 [facility] Sodium 138 Normal 135- [address] mmol/[place] [address] [phone] Potassium 3.8 mmol/L Normal 3.5-5.0 Chloride 103 [...] Egfr Non- 98.5 >60 Egfr 119.2 >60 30 Lipid Profile 08/18/2019 [facility] Triglycerides 78 mg/dL 31 (Trig/Chol/HDL) [address] [place] [address] [phone] Cholesterol 161 mg/dL 32 HDL Cholesterol 57.8 mg/dL 33 LDL Cholesterol 88 mg/dL 34 Laboratory test 08/18/2019 [facility] Folic Acid > 20.00 > 3.99 finding (Folate) ng/mL [place], [place] [address] [phone] Vitamin B12 871 pg/mL Normal 180-914 35 Insulin Level 10.3 mcIU/mL Normal 2.0-16.0 Vitamin D Total 25(Oh) 30.1 ng/mL Normal 20-50 36 Magnesium 2.0 mg/dL Normal 1.9-2.7 Thyroid 08/18/2019 [facility] Thyroid 0.84 Normal <9 Autoantibodies Peroxidase IU/[place] [address] Antibodies [phone] Thyroglobulin Antibody II 0.0 IU/mL <4.0 Laboratory test 08/18/2019 [facility] CRP High 33.60 mg/L High <2.[address] [place] [address] [phone] TSH (Thyroid Stim Horm) 0.97 mcIU/mL Normal 0.34-5.60 Free T4 (Free Thyroxine) 0.83 ng/dL Normal 0.61-1.12 Thyroxine 7.64 g/dL Normal 6.09-12.23 T3 Free 3.90 pg/mL Normal 2.5-3.9 T3 Total 107 ng/dL Normal 87-178 Ferritin 58.2 ng/mL Normal 11-307 Iron & Iron Binding 08/18/2019 [facility] Iron 41 g/dL Low 50-[address] [place] [address] [phone] Unsaturated Iron Binding < 425 g/dL Total Iron Binding Capacity 440 g/dL Normal 250-450 Transferrin 314 mg/dL Normal 203-362 % Iron Saturation 9 % Low 15-55 Laboratory test 07/01/2019 [facility] CRP High <pending> [place] [address] [phone] Laboratory test 07/01/2019 [facility] Copper, Serum <pending> [place] [address] [phone] Laboratory test 07/01/2019 [facility] Hemoglobin A1c <pending> finding (Glyco HGB) [place] [address] [phone] Homocysteine <pending> Insulin Level <pending> Vitamin B12 And Folate 07/01/2019 [facility] Vitamin B12 < pending> Serum [address] [place] [address] [phone] Folic Acid (Folate) <pending> Laboratory test finding 07/01/2019 [facility] Vitamin B6 < pending> [address] [place] [address] [phone] Vitamin B1 (Whole Blood) <pending> Vitamin D Total 25(Oh) <pending> Zinc Serum <pending> TSH (Thyroid Stim Horm) <pending> Thyroxine <pending> Free T4 (Free Thyroxine) <pending> T3 Free <pending> T3 Reverse <pending> T3 Total <pending> Ferritin <pending> 1 SEE RESULT BELOW Name: CHERELLE BOOGIE : [address]: Yuriy Jaramillo MD Acct: [id number] Unit: [id number] AGE: 39 Location: [facility] Re11/01/19 SEX: F Status: REG REF SPEC: [id number] DYAN: 11/01/1940 [facility] DR: Yuriy Jaramillo MD REQ: [id number] RECD: 11/01/192196 STATUS: ADRIANA SALGADO DR: Rona Arredondo RECEPTION SPECIALIST _ SOURCE: GAS ANTRUM SPDESC: ORDERED: Clotest Procedure Result Reported Site Clotest Final 11/02/19- 07 ML Clotest Negative * ML - Main Lab . END OF REPORT DEPARTMENT OF PATHOLOGY, [address] [place] [address] Rex Guy M.D. Director [facility] # [id number] 2 SEE RESULT BELOW Name: CHERELLE BOOGIE : [address]: Yuriy Jaramillo MD Acct: [id number] Unit: [id number] AGE: 39 Location: ENDO Re11/01/19 SEX: F Status: DEP REF SPEC: [id number] DYAN: 11/01/19 [facility] DR: Yuriy Jaramillo MD REQ: [id number] RECD: 11/01/19 STATUS: CASSIE SALGADO DR: Rona Arredondo RECEPTION SPECIALIST _ ORDERED: LEVEL 4/2 ADDENDUM An H. [...] CONTINUED ON NEXT PAGE DEPARTMENT OF PATHOLOGY, [address] [place] [address] Rex Guy M.D. Director [facility] # [id number] POST-OPERATIVE DIAGNOSIS EGD: larynx - normal; esophagus [...] 1232 END OF REPORT DEPARTMENT OF PATHOLOGY, [address] [place] [address] Rex Guy M.D. Director [facility] # [id number] 3 SEE RESULT BELOW Name: CHERELLE BOOGIE : [address]: Jerson Chatterjee MD Acct: [id number] Unit: [id number] AGE: 38 Location: [facility] Re10/17/19 SEX: F Status: REG REF SPEC: [id number] DYAN: 10/17/19-[address]: Jerson Chatterjee MD REQ: [id number] RECD: 10/17/19 STATUS: SOUT _ ORDERED: TP IMAGE ANALYS, HPV/Thin Prep, HPV 16/18 GENE COMMENTS: [id number] FINAL DIAGNOSIS Negative for Intraepithelial lesion or [...] CONTINUED ON NEXT PAGE DEPARTMENT OF PATHOLOGY, [address] [place] [address] Rex Guy M.D. Director [facility] # [id number] CYTOLOGY PATIENT INFORMATION Patient Information: HPV: High risk HPV RNA testing regardless of pap results. HPV 16/18 Genotype Reflex Actual Specimen Date: 10/17/19 Last Menstrual Date: 10/08/19 ?: N Post Menopausal?: N Hysterectomy?: N Previous Abnormal Pap Smears?:N Signed by and Reported on: LIAM Donnelly (ASCP) 5134 This Pap test was evaluated with the assistance of the [employer] Test Imaging System. Due to cytologic findings at the day camp counselor microscope, comprehensive manual rescreening by a Roll Bucker may be required. The Pap Smear is [...] years. END OF REPORT DEPARTMENT OF PATHOLOGY, [address] [place] [address] Rex Guy M.D. Director CLIA # [id number] 4 RESULT: No apparent monoclonal protein on serum electrophoresis. Test Performed by: [address] [address] Bingo Checker: Danny Shah M.D. Ph.D.; CLIA# [id number] 5 This individual DOES have the Methylenetetrahydrofolate reductase [...] therapy). If clinically indicated, suggest Coagulation Consultation 36972 (Thrombophila Profile) to complete the evaluation for an inherited or acquired thrombosing disorder (i.e., thrombophilia). Consider genetic consultation and counseling of potentially affected family members regarding laboratory testing. ADDITIONAL INFORMATION This test is a direct mutation analysis using PCR amplification, signal generation and release by cleavage of sequence specific alleles ([employer], [employer], [place], [place]). This test has been modified from the hand tube bender's instructions. Its performance characteristics were determined by [facility] in a manner consistent with CLIA requirements. This test has not been cleared or approved by the U.S. Food and Drug Administration. 6 RESULT: Natalia Pruitt M.D. 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 MTHAC P6327Q carriers are not at increased risk for thrombosis in the absence of hyperhomocysteinemia. In the absence of alternative causes, heterozygous carriers of MTHAC H2034M are not at increased risk for hyperhomocysteinemia. Hyperhomocysteinemia is a relatively weak risk factor for both venous thromboembolism and arterial thrombosis. The MTHAC P5389B gene mutation test does not detect other causes of hyperhomocysteinemia due to acquired disorders (renal failure, zinc deficiency, leukemia, psoriasis, or antifolate drug therapy). If clinically indicated, suggest Coagulation Consultation 10860 (Thrombophila Profile) to complete the evaluation for an inherited or acquired thrombosing disorder (i.e., thrombophilia). Consider genetic consultation and counseling of potentially affected family members regarding laboratory testing. ADDITIONAL INFORMATION This test is a direct mutation analysis using PCR amplification, signal generation and release by cleavage of sequence specific alleles ([employer], [employer], [place], [place]). This test has been modified from the hand tube bender's instructions. Its performance characteristics were determined by [facility] in a manner consistent with CLIA requirements. This test has not been cleared or approved by the U.S. Food and Drug Administration. 8 RESULT: Natalia Pruitt M.D. This test is a direct mutation analysis using PCR amplification, signal generation and release by cleavage of sequence specific alleles ([employer], [employer], [place], [place]). This test has been modified from the hand tube bender's instructions. Its performance characteristics were determined by [facility] in a manner consistent with CLIA requirements. This test has not been cleared or approved by the U.S. Food and Drug Administration. Test Performed by: [facility] [employer] - [address] [address] Bingo Checker: Danny Shah M.D. Ph.D.; CLIA# [id number] 9 RESULT: 05,05 REFERENCE VALUE Not Applicable 10 RESULT: 03:01,03:01 DQ Serologic Equivalent: 7,7 REFERENCE VALUE Not Applicable 11 The absence of HLA celiac permissive genes would make the presence of celiac disease unlikely. ADDITIONAL INFORMATION Method: Molecular typing of HLA antigens performed using reverse SSOP and/or SSP methods, reported as serological equivalents and low to medium resolution molecular values. Test Performed by: [facility] - [address] [address] Bingo Checker: Danny Shah M.D. Ph.D.; CLIA# [id number] 12 ADDITIONAL INFORMATION This test was developed and its performance characteristics determined by [facility] in a manner consistent with CLIA requirements. This test has not been cleared or approved by the U.S. Food and Drug Administration. 13 ADDITIONAL INFORMATION This test was developed and its performance characteristics determined by [facility] in a manner consistent with CLIA requirements. This test has not been cleared or approved by the U.S. Food and Drug Administration. Test Performed by: [facility] [employer] - [facility] [address] [place] [address] Bingo Checker: Danny Shah M.D. Ph.D.; CLIA# [id number] 14 ADDITIONAL INFORMATION This test was developed and its performance characteristics determined by [facility] in a manner consistent with CLIA requirements. This test has not been cleared or approved by the U.S. Food and Drug Administration. Test Performed by: [facility] [address] Bingo Checker: Danny Shah M.D. Ph.D.; CLIA# [id number] 15 ADDITIONAL INFORMATION This test was developed and its performance characteristics determined by [facility] in a manner consistent with CLIA requirements. This test has not been cleared or approved by the U.S. Food and Drug Administration. Test Performed by: [facility] [address] Bingo Checker: Danny Shah M.D. Ph.D.; CLIA# [id number] 16 ADDITIONAL INFORMATION This test was developed and its performance characteristics determined by [facility] in a manner consistent with CLIA requirements. This test has not been cleared or approved by the U.S. Food and Drug Administration. Test Performed by: [facility] [address] Bingo Checker: Danny Shah M.D. Ph.D.; CLIA# [id number] 17 ADDITIONAL INFORMATION This test was developed and its performance characteristics determined by [facility] in a manner consistent with CLIA requirements. This test has not been cleared or approved by the U.S. Food and Drug Administration. Test Performed by: [facility] [address] Bingo Checker: Danny Shah M.D. Ph.D.; CLIA# [id number] 18 ADDITIONAL INFORMATION This test was developed and its performance characteristics determined by [facility] in a manner consistent with CLIA requirements. This test has not been cleared or approved by the U.S. Food and Drug Administration. 19 ADDITIONAL INFORMATION Testing performed by Inductively Coupled Plasma-Mass Spectrometry (ICP-MS). This test was developed and its performance characteristics determined by [facility] in a manner consistent with CLIA requirements. This test has not been cleared or approved by the U.S. Food and Drug Administration. 20 ADDITIONAL INFORMATION This test was developed and its performance characteristics determined by [facility] in a manner consistent with CLIA requirements. This test has not been cleared or approved by the U.S. Food and Drug Administration. 21 ADDITIONAL INFORMATION This test was developed and its performance characteristics determined by [facility] in a manner consistent with CLIA requirements. This test has not been cleared or approved by the U.S. Food and Drug Administration. 22 13 Save22 23 Test Performed by: [facility] [employer] - [address] [address] Bingo Checker: Danny Shah M.D. Ph.D.; CLIA# [id number] 24 ADDITIONAL INFORMATION This test was developed and its performance characteristics determined by [facility] in a manner consistent with CLIA requirements. This test has not been cleared or approved by the U.S. Food and Drug Administration. Test Performed by: [facility] - [address] [address] Bingo Checker: Danny Sahh M.D. Ph.D.; CLIA# [id number] 25 REFERENCE VALUE <=13 (Fasting) ADDITIONAL INFORMATION This test was developed and its performance characteristics determined by [facility] in a manner consistent with CLIA requirements. This test has not been cleared or approved by the U.S. Food and Drug Administration. Test Performed by: [facility] - [address] [address] Bingo Checker: Danny Shah M.D. Ph.D.; CLIA# [id number] 26 REFERENCE VALUE <=1.0 (Negative) 27 REFERENCE VALUE <20.0 (Negative) 28 Tests for antibodies to dsDNA and JESSICA antigens are not performed automatically unless the MAX result is > or = 3.0 U. Studies performed at [facility] indicate that positive MAX results <3.0 U are rarely accompanied by positive second order tests. Test Performed by: [facility] - [facility] [address] [place] [address] Bingo Checker: Danny Shah M.D. Ph.D.; CLIA# [id number] 29 Therapeutic target for the treatment of diabetes mellitus patients is <7% HBA1C, and in selective patients <6.0%. Please refer to [place] [employer] diabetic care guidelines for further information. 30 Because ethnic data is not always readily [...] 15-29 5 Kidney failure <15 (or dialysis) 31 Desirable: <150 Borderline High: 150-199 High: 200-499 Very High: >500 32 Desirable: <200 Borderline High: 200-239 High: >239 33 Low: <40 Desirable: 40-60 High: >60 34 Desirable: <100 Near Optimal: 100-129 Borderline High: 130-159 High: 160-189 Very High: >189 35 Normal Range 180 to 914 Indeterminate Range 145 to 180 Deficient Range <145 36 Total 25-Hydroxyvitamin D2 and D3 (25-OH-VitD) <10 ng/mL (severe deficiency) 10-19 ng/mL (mild to moderate deficiency) 20-50 ng/mL (optimum levels) 51-80 ng/mL (increased risk of hypercalciuria) >80 ng/mL (toxicity possible) Procedures Date Code Description Status 11/01/2019 17749 Endoscopy Upper GI Biopsy Completed 11/01/2019 99639793 Colonoscopy Completed Medical Devices Description No Information Available Encounters Type Date Location Provider Dx Diagnosis Office Visit 12/21/2019 Rheumatology Reji Lopez, M62.838 Other muscle 8:30a [facility] MD spasm Ccmob M79.7 Fibromyalgia Office Visit 12/02/2019 11:30a [facility] Jerson Chatterjee, R10.32 Left lower [facility] quadrant pain N94.6 Dysmenorrhea, unspecified N92.0 Excessive and frequent menstruation with regular cycle N80.9 Endometriosis, unspecified Office Visit 11/07/2019 11:00a [facility] Haider Camacho, S76.112A Strain of left at [place] Maldonado quadriceps muscle, fascia and tendon, init Office Visit 10/17/2019 4:00p [facility] Z01.419 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 room 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 [facility] MD Sen exam (general) (routine) w/o abn findings R10.32 Left lower quadrant pain Office 10/07/2019 [facility] Trinh K21.0 Gastro-esophageal Visit 9:15a Trupti reflux disease with ADRIANA Bowden esophagitis D64.9 Anemia, unspecified R10.84 Generalized abdominal pain Office Visit 09/09/2019 11:00a [facility]ology Services Reji Lopez, M54.2 [facility] M62.838 Other muscle spasm M79.7 Fibromyalgia R70.0 Elevated erythrocyte sedimentation rate D50.9 Iron deficiency anemia, unspecified Office Visit 08/19/2019 9:00a [facility] Raquel Hernandez G89.4 Chronic pain [facility] RECEPTION SPECIALIST syndrome R53.82 Chronic fatigue, unspecified Office Visit 07/01/2019 8:00a [facility] Raquel Hernandez R53.82 Chronic fatigue, [facility] RECEPTION SPECIALIST unspecified G89.4 Chronic pain syndrome R14.0 Abdominal distension (gaseous) N94.3 Premenstrual tension syndrome F41.9 Anxiety disorder, unspecified Assessments Date Code Description Provider 12/21/2019 M62.838 Other muscle spasm Reji Lopez MD 12/21/2019 M79.7 Fibromyalgia Reji Lopez MD 12/02/2019 R10.32 Left lower quadrant pain Jerson Chatterjee MD 12/02/2019 N94.6 Dysmenorrhea, unspecified Jerson Chatterjee MD 12/02/2019 N92.0 Excessive and frequent menstruation Jerson Chatterjee MD with regular cycle 12/02/2019 N80.9 Endometriosis, unspecified Jerson Chatterjee MD 11/16/2019 G89.4 Chronic pain syndrome Raquel Hernandez NP 11/07/2019 S76.112A Strain of left quadriceps muscle, Haider Camacho M.D. fascia and tendon, initial encounter 11/01/2019 K29.50 Unspecified chronic gastritis without Yuriy Jaramillo MD bleeding 11/01/2019 K21.0 Gastro-esophageal reflux disease with Yuriy Jaramillo MD esophagitis 11/01/2019 K44.9 Diaphragmatic hernia without Yuriy Jaramillo MD obstruction or gangrene 10/17/2019 Z01.419 Encounter for gynecological Jerson Chatterjee MD examination (general) (routine) without abnormal findings 10/17/2019 R10.32 Left lower quadrant pain Jerson Chatterjee MD 10/07/2019 K21.0 Gastro-esophageal reflux disease with Trinh Bowden NP esophagitis 10/07/2019 D64.9 Anemia, unspecified Trinh Bowden NP 10/07/2019 R10.84 Generalized abdominal pain Trinh Bowden NP 09/09/2019 M54.2 Neck pain Reji Lopez MD 09/09/2019 M62.838 Muscle spasms of head And/Or neck Reji Lopez MD 09/09/2019 M79.7 Fibromyalgia Reji Lopez MD 09/09/2019 R70.0 Esr raised Reji Lopez MD 09/09/2019 D50.9 Iron deficiency anemia Reji Lopez MD 08/19/2019 G89.4 Chronic pain syndrome Raquel Hernandez, ADRIANA 08/19/2019 R53.82 Chronic fatigue, unspecified Raquel Hernandez, RECEPTION SPECIALIST 07/01/2019 R53.82 Chronic fatigue, unspecified Raquel Hernandez, RECEPTION SPECIALIST 07/01/2019 G89.4 Chronic pain syndrome Raquel Hernandez, ADRIANA 07/01/2019 R14.0 Abdominal distension (gaseous) Raquel Hernandez NP 07/01/2019 N94.3 Premenstrual tension syndrome Raquel Hernandez, ADRIANA 07/01/2019 F41.9 Anxiety disorder, unspecified Raquel Hernandez NP Plan of Treatment Future Appointment(s):02/22/2020 8:00 am - Reji Lopez MD at [facility]10/22/2020 9:30 am - Jerson Chatterjee MD at [facility]01/02/2020 3:45 pm - Yuriy Jaramillo MD at [facility]o91/19/2020 - Reji Lopez, MDM62.838 Other muscle spasmNew Medication:Cyclobenzaprine HCL 5 mg - take 5mg at night before bedtimeNew Therapy:Physical TherapyFollow up:2 [id number] FibromyalgiaComments:consider taper of zoloft and starting cymbalta or effexor Functional Status Description No Information Available Mental Status Description No Information Available Referrals Refer to Reason for Referral Status Appt Date Yuriy Jaramillo MD History of gastric ulcer with ongoing GERD Sent 2018 symptoms and iron deficiency anemia; please evaluate and treat [address] [place] [id number] [phone] Anastacio Hillman MD Sent 09/09/[address] [place] [address] [place] [address] [phone]
--- OUTSIDE RECORDS SUMMARY | 2020-01-23 19:52 | XMS REPORT | Continuity of Care Document ---
:1980 External Reference #:[id number] Author Name Jemima Maldonado, MARKEL-Cde (transmitted by agent of provider Yasmine Grace) Address [address] , [facility] [place] [address] Care Team Providers Name Role Phone Rona Arredondo NP - Nurse Care Team Information Rodbuster [phone] Practitioner Problems Active Problems Provider Date Asthma Trinh Bowden NP Onset: 10/07/2019 Gastroesophageal reflux disease Trinh Bowden NP Onset: 10/07/2019 Note: was on Nexium and Dexilant in 2012 time frame while in [place]; Migraine Trinh Bowden NP Onset: 10/07/2019 Pituitary adenoma Trinh Bowden NP Onset: 10/07/2019 Note: 2010 - asked her primary to "check hormones" with slight irregularity of her menses; w/u of elevated prolactin ; microadenoma and put on a med Dostinex (cabergoline) for a year by og [place] ZAVALETA- has discussed with Dr Chatterjee and Nisha Hernandez; Hiatal hernia Trinh Bowden NP Onset: 10/07/2019 Iron deficiency Yuriy Jaramillo MD Onset: 08/18/2019 Note: very subtle with Hg 15.2 MCV 87 and iron sat 9% 41 / 440 ferritin 58.2 this date Social History Type Date Description Comments Sex Unknown Tobacco Use Start: Unknown Never Smoked Cigarettes ETOH Use Rarely consumes alcohol Recreational Drug Use Denies Drug Use Tobacco Use Start: Unknown Patient has never smoked Smoking Status Reviewed: 01/18/20 Patient has never smoked Exercise Type/Frequency Yoga 1-2 times per week Allergies, Adverse Reactions, Alerts Active Allergies Reaction Severity Comments Date Celexa Nightmares 06/23/2019 Amoxicillin Hives 06/23/2019 Adhesive Rash 06/23/2019 Medications Active Medications SIG Qnty Indications Ordering Date Provider Omeprazole 1 by mouth in the 90caps K21.0 Yuriy Meraz 01/02/[address] morning 30 to [...] capsule Unknown by mouth daily 1000Unit Capsules Gzolxge-Fjwrmkoeq-Kepr 3 tablets by Unknown mouth daily 333-133-5mg Tablets Vitamin Take one tablet Unknown Tablets by mouth daily Tylenol Take 1-2 capsules Unknown 325mg Capsules by mouth as needed Benadryl Allergy Take one to two Unknown 25mg capsules by mouth Capsules daily Immunizations Description No Information Available Vital Signs Date Vital Result Comment 01/18/2020 8:40am Height 66 inches 5'6" Weight 172.00 lb Heart Rate 82 /min BP Systolic 126 mmHg BP Diastolic 80 mmHg O2 % BldC Oximetry 97 % BMI (Body Mass Index) 27.8 kg/m2 01/02/2020 3:56pm Height 66 inches 5'6" Weight 172.50 lb Heart Rate 79 /min BP Systolic 106 mmHg BP Diastolic 72 mmHg Respiratory Rate 16 /min O2 % BldC Oximetry 97 % BMI (Body Mass Index) 27.8 kg/m2 Results Test Acquired Date Facility Test Result H/L Range Note Laboratory test 12/28/2019 [facility] Progesterone < 0.1 ng/mL [address] [place], [place] [id number] [phone] Laboratory test 11/01/2019 [facility] Clotest SEE RESULT [address] [place] [address] [phone] Surgical 11/01/2019 [facility] Surgical SEE RESULT [address] [place] [address] [phone] PDFReport SEE IMAGE Cytology 10/17/2019 [facility] Cytology SEE RESULT BELOW [address] [place] [address] [phone] PDFReport SEE IMAGE Iron & Iron Binding 10/11/2019 [facility] Iron 85 g/dL Normal 50-[address] [place], [place] [id number] [phone] Unsaturated Iron Binding < 429 g/dL Total Iron Binding Capacity 444 g/dL Normal 250-450 Transferrin 317 mg/dL Normal 203-362 % Iron Saturation 19 % Normal 15-55 Laboratory test 10/11/2019 [facility] Ferritin 31.2 Normal 11- [address] ng/[place] [address] [phone] CBC Auto Diff 10/11/2019 [facility] White Blood 5.6 Normal 3.5 -10.[address] Count 10^3/uL [place], [place] [address] [phone] Red Blood Count 4.85 10^6/uL Normal 3.70-4.87 [...] Blood Cells % 0.1 Laboratory test 10/11/2019 [facility] C Reactive 2.35 mg/L Normal <8.[address] [place] [address] [phone] Erythrocyte Sed Rate 10 mm/Hr Normal 0-19 Urinalysis Profile 10/11/2019 [facility] Urine Color Denise [address] [place] [address] [phone] Urine Appearance Cloudy Urine Specific [place] 1.009 Low 1.010-1.030 Urine pH 6.0 Normal [...] Epithelial Cell Present Abnormal Absent Protein 10/11/2019 [facility] Total 7.2 g/dL 6.3 - Electrophoresis [address] Protein(Pep) 7.9 [place] [address] [phone] Albumin 3.7 g/dL 3.4-4.7 Alpha-1 Globulin 0.3 g/dL 0.1-0.3 Alpha-2 Globulin 0.9 g/dL 0.6-1.0 Beta Globulin 1.0 g/dL 0.7-1.2 Gamma Globulin 1.3 g/dL 0.6-1.6 Albumin/Globulin Ratio 1.05 Impression See Comment 5 CBC Auto 08/18/2019 [facility] White Blood 8.7 10^3/uL Normal 3.5-10.[address] [place] [address] [phone] Red Blood Count 5.02 10^6/uL High 3.70-4.87 [...] Blood Cells % 0.0 Laboratory test 08/18/2019 [facility] Hemoglobin A1c 5.1 % Normal 4.0-5.6 [address] (Glyco HGB) [place] [address] [phone] Comp Metabolic 08/18/2019 [facility] Sodium 138 Normal 135- [address] mmol/[place] [address] [phone] Potassium 3.8 mmol/L Normal 3.5-5.0 Chloride 103 [...] Egfr 119.2 >60 7 Lipid Profile 08/18/2019 [facility] Triglycerides 78 mg/dL 8 (Trig/Chol/HDL) [address] [place] [address] [phone] Cholesterol 161 mg/dL 9 HDL Cholesterol 57.8 mg/dL 10 LDL Cholesterol 88 mg/dL 11 Iron & Iron Binding 08/18/2019 [facility] Iron 41 g/dL Low 50-[address] [place], [place] [address] [phone] Unsaturated Iron Binding < 425 g/dL Total Iron Binding Capacity 440 g/dL Normal 250-450 Transferrin 314 mg/dL Normal 203-362 % Iron Saturation 9 % Low 15-55 Laboratory test 08/18/2019 [facility] CRP High 33.60 mg/L High <2.00 finding [address] [place] [address] [phone] TSH (Thyroid Stim Horm) 0.97 mcIU/mL Normal 0.34-5.60 Free T4 (Free Thyroxine) 0.83 ng/dL Normal 0.61-1.12 Thyroxine 7.64 g/dL Normal 6.09-12.23 T3 Free 3.90 pg/mL Normal 2.5-3.9 T3 Total 107 ng/dL Normal 87-178 Ferritin 58.2 ng/mL Normal 11-307 Thyroid 08/18/2019 [facility] Thyroid 0.84 Normal <9 Autoantibodies Peroxidase IU/[place] [address] Antibodies [phone] Thyroglobulin Antibody II 0.0 IU/mL <4.0 Laboratory test 08/18/2019 [facility] Folic Acid > 20.00 > 3.99 finding 101 (Folate) ng/[place] [address] [phone] Vitamin B12 871 pg/mL Normal 180-914 12 Insulin Level 10.3 mcIU/mL Normal 2.0-16.0 Vitamin D Total 25(Oh) 30.1 ng/mL Normal 20-50 13 Magnesium 2.0 mg/dL Normal 1.9-2.7 Arthritis Panel 08/18/2019 [facility] Uric Acid 5.4 mg/dL Normal 2.3-6.6 [address] [place] [address] [phone] Rheumatoid Factor < 10 IU/mL Normal <15 Erythrocyte Sed Rate 39 mm/Hr High 0-19 Anti-Nuclear Antibody 0.1 U 14 Cyclic Citrullinated Peptide <15.6 U 15 Interpretation See Comment 16 Laboratory test 08/18/2019 [facility] Methylmalonic 0.18 <= 0.[address] Acid Mma nmol/[place] [address] [phone] Homocysteine 6 mcmol/L 18 Heavy Metal Blool 08/18/2019 [facility] Arsenic <1 ng/mL 0- [address] [place] [address] [phone] Lead <1.0 g/dL 0.0-4.9 20 Mercury <1 ng/mL 0-9 21 Cadmium 0.3 ng/mL 0.0-4.[address] [facility] <SEE NOTE> [address] [facility] [id number] [place] [address] Guardian First Name CHERELLE Ramos Guardian Last Name CHUYITA Venous/Capillary Heavy Metals Venous Patient Race WHITE Submitting Laboratory 24 Laboratory test 08/18/2019 [facility] Copper, 1.33 g/mL 0.75-1.[address] [place] [address] [phone] Zinc Serum 0.78 g/mL 0.66-1.10 26 Vitamin B1 (Whole Blood) 145 nmol/L 70-180 27 T3 Reverse 20 ng/dL 10-24 28 Vitamin B6 08/18/2019 [facility] Pyridoxal 5-Phosphate 10 g/L 5-[address] [place] [address] [phone] Pyridoxic Acid 8 g/L 3-30 30 Celiac Hla 08/18/2019 [facility] Hla-Dqa1 SEE BELOW [address] [place] [address] [phone] Hla-DQB1 SEE BELOW 32 Celiac Gene Pairs Present? No Celiac Gene Interpretation See Comment 33 MTHFR 08/18/2019 [facility] MTHFR C677T Heterozygous Abnormal Negative Mutation [address] [place] [address] [phone] MTHFR Interpretation See Comment 34 MTHFR Reviewed By See Comment 35 MTHFR R3770w Mutation Heterozygous Abnormal Negative Mthac Interpretation See Comment 36 Mthac Reviewed By See Comment 37 1 Female reference ranges for Progesterone: Follicular phase.......0.3 - 1.5 ng/ml Mid-luteal phase.......5.2 - 18.5 ng/ml Postmenopausal.........< 0.8 ng/ml 1st trimester.........4.7 - 50.0 ng/ml 2nd trimester.........19.4 - 45.3 ng/ml 2 SEE RESULT BELOW Name: CHERELLE BOOGIE Rachel : [address]: Yuriy Jaramillo MD Acct: [id number] Unit: [id number] AGE: 39 Location: ENDO Re11/01/19 SEX: F Status: REG REF SPEC: [id number] DYAN: 11/01/[address]: Yuriy Jaramillo MD REQ: [id number] RECD: 11/01/191922 STATUS: ADRIANA SALGADO DR: Rona Arredondo COMMUNICATIONS INSTRUCTOR _ SOURCE: GAS ANTRUM SPDESC: ORDERED: Clotest Procedure Result Reported Site Clotest Final 11/02/19- 07 ML Clotest Negative * ML - Main Lab . END OF REPORT DEPARTMENT OF PATHOLOGY, [address] [place] [address] Rex Guy M.D. Director [facility] # [id number] 3 SEE RESULT BELOW Name: CHERELLE BOOGIE : [address]: Yuriy Jaramillo MD Acct: [id number] Unit: [id number] AGE: 39 Location: ENDO Re11/01/19 SEX: F Status: DEP REF SPEC: [id number] DYAN: 11/01/[address] [facility] [address]: Yuriy Jaramillo MD REQ: [id number] RECD: 11/01/196230 STATUS: CASSIE SALGADO DR: Rona Arredondo COMMUNICATIONS INSTRUCTOR _ ORDERED: LEVEL 4/2 ADDENDUM An H. [...] CONTINUED ON NEXT PAGE DEPARTMENT OF PATHOLOGY, [address] [place] [address] Rex Guy M.D. Director [facility] # [id number] POST-OPERATIVE DIAGNOSIS EGD: larynx - normal; esophagus [...] 1232 END OF REPORT DEPARTMENT OF PATHOLOGY, [address] [place] [address] Rex Guy M.D. Director [facility] # [id number] 4 SEE RESULT BELOW Name: CHERELLE BOOGIE : [address]: Jerson Chatterjee MD Acct: [id number] Unit: [id number] AGE: 38 Location: [facility] Re10/17/19 SEX: F Status: REG REF SPEC: [id number] DYAN: 10/17/19-[address] [facility] [address]: Jerson Chatterjee MD REQ: [id number] RECD: 10/17/19 STATUS: SOUT _ ORDERED: TP IMAGE ANALYS, HPV/Thin Prep, HPV 16/18 GENE COMMENTS: [id number] FINAL DIAGNOSIS Negative for Intraepithelial lesion or [...] CONTINUED ON NEXT PAGE DEPARTMENT OF PATHOLOGY, [address] [place] [address] Rex Guy M.D. Director [facility] # [id number] CYTOLOGY PATIENT INFORMATION Patient Information: HPV: High risk HPV RNA testing regardless of pap results. HPV 16/18 Genotype Reflex Actual Specimen Date: 10/17/19 Last Menstrual Date: 10/08/19 ?: N Post Menopausal?: N Hysterectomy?: N Previous Abnormal Pap Smears?:N Signed by and Reported on: LIAM Donnelly (ASCP) [id number] This Pap test was evaluated with the assistance of the [employer] Test Imaging System. Due to cytologic findings at the scuba diver microscope, comprehensive manual rescreening by a Business Management Professor may be required. The Pap Smear is [...] years. END OF REPORT DEPARTMENT OF PATHOLOGY, [address] [place] [address] Rex Guy M.D. Director [facility] # [id number] 5 RESULT: No apparent monoclonal protein on serum electrophoresis. Test Performed by: [place] [address] Clay Burner: Danny Shah M.D. Ph.D.; CLIA# [id number] 6 Therapeutic target for the treatment of diabetes mellitus patients is <7% HBA1C, and in selective patients <6.0%. Please refer to [place] [employer] diabetic care guidelines for further [...] or = 3.0 U. Studies performed at [facility] indicate that positive MAX results <3.0 U are rarely accompanied by positive second order tests. Test Performed by: [facility] [address] [id number] Clay Burner: Danny Shah M.D. Ph.D.; CLIA# [id number] 17 ADDITIONAL INFORMATION This test was developed and its performance characteristics determined by [facility] in a manner consistent with CLIA requirements. This test has not been cleared or approved by the U.S. Food and Drug Administration. Test Performed by: [facility] - [address] [address] Clay Burner: Danny Shah M.D. Ph.D.; CLIA# [id number] 18 REFERENCE VALUE <=13 (Fasting) ADDITIONAL INFORMATION This test was developed and its performance characteristics determined by [facility] in a manner consistent with CLIA requirements. This test has not been cleared or approved by the U.S. Food and Drug Administration. Test Performed by: [address] [address] Clay Burner: Danny Shah M.D. Ph.D.; CLIA# [id number] 19 ADDITIONAL INFORMATION This test was developed and its performance characteristics determined by [facility] in a manner consistent with CLIA requirements. This test has not been cleared or approved by the U.S. Food and Drug Administration. 20 ADDITIONAL INFORMATION Testing performed by Inductively Coupled Plasma-Mass Spectrometry (ICP-MS). This test was developed and its performance characteristics determined by [facility] in a manner consistent with CLIA requirements. This test has not been cleared or approved by the U.S. Food and Drug Administration. 21 ADDITIONAL INFORMATION This test was developed and its performance characteristics determined by [facility] in a manner consistent with CLIA requirements. This test has not been cleared or approved by the U.S. Food and Drug Administration. 22 ADDITIONAL INFORMATION This test was developed and its performance characteristics determined by [facility] in a manner consistent with CLIA requirements. This test has not been cleared or approved by the U.S. Food and Drug Administration. 23 13 InstyBook 24 Test Performed by: [facility] [place] [address] Clay Burner: Danny Shah M.D. Ph.D.; CLIA# [id number] 25 ADDITIONAL INFORMATION This test was developed and its performance characteristics determined by [facility] in a manner consistent with CLIA requirements. This test has not been cleared or approved by the U.S. Food and Drug Administration. Test Performed by: [facility] [place] [address] Clay Burner: Danny Shah M.D. Ph.D.; CLIA# [id number] 26 ADDITIONAL INFORMATION This test was developed and its performance characteristics determined by [facility] in a manner consistent with CLIA requirements. This test has not been cleared or approved by the U.S. Food and Drug Administration. Test Performed by: [facility] [place] [address] Clay Burner: Danny Shah M.D. Ph.D.; CLIA# [id number] 27 ADDITIONAL INFORMATION This test was developed and its performance characteristics determined by [facility] in a manner consistent with CLIA requirements. This test has not been cleared or approved by the U.S. Food and Drug Administration. Test Performed by: [facility] [place] [address] Clay Burner: Danny Shah M.D. Ph.D.; CLIA# [id number] 28 ADDITIONAL INFORMATION This test was developed and its performance characteristics determined by [facility] in a manner consistent with CLIA requirements. This test has not been cleared or approved by the U.S. Food and Drug Administration. Test Performed by: [facility] - [address] [address] Clay Burner: Danny Shah M.D. Ph.D.; CLIA# [id number] 29 ADDITIONAL INFORMATION This test was developed and its performance characteristics determined by [facility] in a manner consistent with CLIA requirements. This test has not been cleared or approved by the U.S. Food and Drug Administration. 30 ADDITIONAL INFORMATION This test was developed and its performance characteristics determined by [facility] in a manner consistent with CLIA requirements. This test has not been cleared or approved by the U.S. Food and Drug Administration. Test Performed by: [facility] - [address] [address] Clay Burner: Danny Shah M.D. Ph.D.; CLIA# [id number] 31 RESULT: 05,05 REFERENCE VALUE Not Applicable 32 RESULT: 03:01,03:01 DQ Serologic Equivalent: 7,7 REFERENCE VALUE Not Applicable 33 The absence of HLA celiac permissive genes would make the presence of celiac disease unlikely. ADDITIONAL INFORMATION Method: Molecular typing of HLA antigens performed using reverse SSOP and/or SSP methods, reported as serological equivalents and low to medium resolution molecular values. Test Performed by: [facility] - [address] [address] Clay Burner: Danny Shah M.D. Ph.D.; CLIA# [id number] 34 This individual DOES have the Methylenetetrahydrofolate [...] therapy). If clinically indicated, suggest Coagulation Consultation 07319 (Thrombophila Profile) to complete the evaluation for an inherited or acquired thrombosing disorder (i.e., thrombophilia). Consider genetic consultation and counseling of potentially affected family members regarding laboratory testing. ADDITIONAL INFORMATION This test is a direct mutation analysis using PCR amplification, signal generation and release by cleavage of sequence specific alleles ([employer], [employer], [place], [place]). This test has been modified from the middle school spanish teacher's instructions. Its performance characteristics were determined by [facility] in a manner consistent with CLIA requirements. This test has not been cleared or approved by the U.S. Food and Drug Administration. 35 RESULT: Natalia Pruitt M.D. 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 MTHAC Y0143D carriers are not at increased risk for thrombosis in the absence of hyperhomocysteinemia. In the absence of alternative causes, heterozygous carriers of MTHAC P4618X are not at increased risk for hyperhomocysteinemia. Hyperhomocysteinemia is a relatively weak risk factor for both venous thromboembolism and arterial thrombosis. The MTHAC V2562S gene mutation test does not detect other causes of hyperhomocysteinemia due to acquired disorders (renal failure, zinc deficiency, leukemia, psoriasis, or antifolate drug therapy). If clinically indicated, suggest Coagulation Consultation 00204 (Thrombophila Profile) to complete the evaluation for an inherited or acquired thrombosing disorder (i.e., thrombophilia). Consider genetic consultation and counseling of potentially affected family members regarding laboratory testing. ADDITIONAL INFORMATION This test is a direct mutation analysis using PCR amplification, signal generation and release by cleavage of sequence specific alleles ([employer], [employer], [place], [place]). This test has been modified from the middle school spanish teacher's instructions. Its performance characteristics were determined by [facility] in a manner consistent with CLIA requirements. This test has not been cleared or approved by the U.S. Food and Drug Administration. 37 RESULT: Natalia Pruitt M.D. This test is a direct mutation analysis using PCR amplification, signal generation and release by cleavage of sequence specific alleles ([employer], [employer], [employer], [place]). This test has been modified from the middle school spanish teacher's instructions. Its performance characteristics were determined by [facility] in a manner consistent with CLIA requirements. This test has not been cleared or approved by the U.S. Food and Drug Administration. Test Performed by: [place] [address] Clay Burner: Danny Shah M.D. Ph.D.; CLIA# [id number] Procedures Date Code Description Status 12/21/2019 99045 Trigger PT Inj(S) Single Or Multiple Points 1 Or 2 Completed Muscles 11/01/2019 04409 Endoscopy Upper GI Biopsy Completed 11/01/2019 97403511 Colonoscopy Completed Medical Devices Description No Information Available Encounters Type Date Location Provider Dx Diagnosis Office Visit 01/02/2020 [facility] Gastroenterology Yuriy Meraz K21.0 Gastro- esophageal 3:45p MD Clint reflux disease with esophagitis K44.9 Diaphragmatic hernia without obstruction or gangrene M79.7 Fibromyalgia Office Visit 12/21/2019 11:00a [facility] Raquel Hernandez NP M79.7 Fibromyalgia [facility] R14.0 Abdominal distension (gaseous) N80.9 Endometriosis, unspecified E72.12 Methylenetetrahydrofolate reductase deficiency F32.81 Premenstrual dysphoric disorder K21.9 Gastro-esophageal reflux disease without esophagitis Office Visit 12/02/2019 11:30a On License Of [facility] Sen, R10.32 Left lower [facility] quadrant pain N94.6 Dysmenorrhea, unspecified N92.0 Excessive and frequent menstruation with regular cycle N80.9 Endometriosis, unspecified Office Visit 11/07/2019 11:00a [facility] Dirjosé luis Camacho, S76.112A Strain of left at [place] M.D. 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 [facility] MD Sen exam (general) (routine) w/o abn findings R10.32 Left lower quadrant pain Office 10/07/2019 [facility] Gastroenterology Trinh K21.0 Gastro-esophageal Visit 9:15a Trupti reflux disease with ADRIANA Bowden esophagitis D64.9 Anemia, unspecified R10.84 Generalized abdominal pain Office Visit 09/09/2019 11:00a [facility] Reji Lopez, M54.2 Cervicalgia [facility] - [facility] M62.838 Other muscle spasm M79.7 Fibromyalgia R70.0 Elevated erythrocyte sedimentation rate D50.9 Iron deficiency anemia, unspecified Office Visit 08/19/2019 9:00a [facility] Raquel Hernandez, G89.4 Chronic pain [facility] COMMUNICATIONS INSTRUCTOR syndrome R53.82 Chronic fatigue, unspecified Assessments Date Code Description Provider 01/18/2020 B37.9 Candidiasis, unspecified BRADLY AmesP-Cde 01/18/2020 N64.59 Other signs and symptoms in breast MARKEL Ames-Cde 01/02/2020 K21.0 Gastro-esophageal reflux disease with Yuriy Jaramillo MD esophagitis 01/02/2020 K44.9 Diaphragmatic hernia without obstruction Yuriy Jaramillo MD or gangrene 01/02/2020 M79.7 Fibromyalgia Yuriy Jaramillo MD 12/21/2019 M79.7 Fibromyalgia Raquel Hernandez NP 12/21/2019 M62.838 Other muscle spasm Reji Lopez MD 12/21/2019 M79.7 Fibromyalgia Reji Lopez MD 12/21/2019 R14.0 Abdominal distension (gaseous) Raquel Hernandez NP 12/21/2019 N80.9 Endometriosis, unspecified Raquel Hernandez, ADRIANA 12/21/2019 E72.12 Methylenetetrahydrofolate reductase Raquelra Mary NP deficiency 12/21/2019 F32.81 Premenstrual dysphoric disorder Raquel HernandezADRIANA charles 12/21/2019 K21.9 Gastro-esophageal reflux disease without Raquel Hernandez NP esophagitis 12/02/2019 R10.32 Left lower quadrant pain Jerson Chatterjee MD 12/02/2019 N94.6 Dysmenorrhea, unspecified Jerson Chatterjee MD 12/02/2019 N92.0 Excessive and frequent menstruation with Jerson Chatterjee MD regular cycle 12/02/2019 N80.9 Endometriosis, unspecified Jerson Chatterjee MD 11/16/2019 G89.4 Chronic pain syndrome Raquel KuADRIANA charles 11/07/2019 S76.112A Strain of left quadriceps muscle, fascia Haider Camacho M.D. and tendon, initial encounter 11/01/2019 K29.50 Unspecified chronic gastritis without Yuriy Jaramillo MD bleeding 11/01/2019 K21.0 Gastro-esophageal reflux disease with Yuriy Jaramilol MD esophagitis 11/01/2019 K44.9 Diaphragmatic hernia without obstruction Yuriy Jaramillo MD or gangrene 10/17/2019 Z01.419 Encounter for gynecological examination Jerson Chatterjee MD (general) (routine) without abnormal findings 10/17/2019 R10.32 Left lower quadrant pain Jerson Chatterjee MD 10/07/2019 K21.0 Gastro-esophageal reflux disease with Trinh Bowden esophagitis [employer] 10/07/2019 D64.9 Anemia, unspecified Trinh Bowden NP [...] 3:45 pm - Yuriy Jaramillo MD at [facility] Myvpemmrsudvqdxv69/25/2020 8:00 am - Raquel Hernandez NP at [facility]02/22/2020 8:00 am - [facility]ji [facility] 9:30 am - Jerson Chatterjee MD at [facility]01/18/2020 - MARKEL Ames-CdeB37.9 Candidiasis, xhwfkouvcksK74.59 Other signs and symptoms in breastFollow up:as needed Functional Status Description No Information Available Mental Status Description No Information Available Referrals Refer to Dr Reason for Referral Status Appt Date Yuriy Jaramillo MD History of gastric ulcer with ongoing GERD Sent 2018 symptoms and iron deficiency anemia; please evaluate and treat [address] [place] [id number] [phone] Anastacio Hillman MD Sent 09/09/[address] [place] [address] [place] [address] [phone]
--- OUTSIDE RECORDS SUMMARY | 2020-01-23 19:52 | XMS REPORT | Continuity of Care Document ---
:1980 External Reference #:[id number] Author Name Jerson Chatterjee MD (transmitted by agent of provider Melissa Amador) Address [address] [place] [address] Care Team Providers Name Role Phone Rona Arredondo NP - Nurse Care Team Information Repair Miller [phone] Practitioner Problems Active Problems Provider Date Asthma [...] Patient has never smoked Smoking Status Reviewed: 12/02/19 Patient has never smoked Exercise Type/Frequency Yoga 1-2 times per week Allergies, Adverse Reactions, Alerts Active Allergies Reaction Severity Comments Date Celexa Nightmares 06/23/2019 Amoxicillin Hives 06/23/2019 Adhesive Rash 06/23/2019 Medications Active Medications SIG Qnty Indications Ordering Date Provider Fioricet Take one to two Unknown 11/02/2018 50-300-40mg Capsules capusles by mouth daily as needed Pepcid Take one tablet Unknown 11/02/2018 20mg Tablets by mouth daily Zoloft Take one tablet Unknown 11/02/2016 100mg Tablets by mouth every day Progesterone Micronized take one capsule Unknown 11/02/2014 200mg by mouth daily Capsules Albuterol Sulfate HFA two puffs every Unknown 11/02/2014 four hours as 108(90Base) mcg/Act needed Aerosol Jane Lavell Brito Unknown Tumeric Cucumin Karolina Unknown Dha Unknown Fish Oil 1 tab by mouth Unknown 1000mg Capsules every morning Boswella Unknown Cyclobenzaprine HCL Armas, Nhi 5mg A, N.P. Tablets Vitamin B Complex Take one tablet Unknown Tablets by mouth daily Vitamin D High Potency Take one capsule Unknown by mouth daily 1000Unit Capsules Wtnloni-Hwpqvirha-Bjjw 3 tablets by Unknown mouth daily 333-133-5mg Tablets Vitamin Take one tablet Unknown Tablets by mouth daily Tylenol Take 1-2 capsules Unknown 325mg Capsules by mouth as needed Benadryl Allergy Take one to two Unknown 25mg capsules by mouth Capsules daily Immunizations Description No Information Available Vital Signs Date Vital Result Comment 12/02/2019 11:40am Height 66 inches 5'6" Weight 175.00 lb Heart Rate 96 /min BP Systolic 114 mmHg BP Diastolic 70 mmHg O2 % BldC Oximetry 97 % BMI (Body Mass Index) 28.2 kg/m2 11/07/2019 11:26am Height 66 inches 5'6" Weight 170.00 lb Heart Rate 91 /min Body Temperature 96.9 F O2 % BldC Oximetry 97 % BMI (Body Mass Index) 27.4 kg/m2 Results Test Acquired Date Facility Test Result H/L Range Note Laboratory test 11/01/2019 [facility] Clotest SEE RESULT [address] [place] [address] [phone] Surgical 11/01/2019 [facility] Surgical SEE RESULT [address] [place] [address] [phone] PDFReport SEE IMAGE Cytology 10/17/2019 [facility] Cytology SEE RESULT BELOW [address] [place] [address] [phone] PDFReport SEE IMAGE Iron & Iron Binding 10/11/2019 [facility] Iron 85 g/dL Normal 50-[address] [place] [address] [phone] Unsaturated Iron Binding < 429 g/dL Total Iron Binding Capacity 444 g/dL Normal 250-450 Transferrin 317 mg/dL Normal 203-362 % Iron Saturation 19 % Normal 15-55 Laboratory test 10/11/2019 [facility] Ferritin 31.2 Normal 11- [address] ng/[place] [address] [phone] CBC Auto Diff 10/11/2019 [facility] White Blood 5.6 Normal 3.5 -10.[address] Count 10^3/[place] [address] [phone] Red Blood Count 4.85 10^6/uL Normal 3.70-4.87 [...] Blood Cells % 0.1 Laboratory test 10/11/2019 [facility] C Reactive 2.35 mg/L Normal <8.[address] [place] [address] [phone] Erythrocyte Sed Rate 10 mm/Hr Normal 0-19 Urinalysis Profile 10/11/2019 [facility] Urine Color Denise [address] [place] [address] [phone] Urine Appearance Cloudy Urine Specific Fackler 1.009 Low 1.010-1.030 Urine pH 6.0 Normal [...] Epithelial Cell Present Abnormal Absent Protein 10/11/2019 [facility] Total 7.2 g/dL 6.3 - Electrophoresis [facility] Protein(Pep) 7.9 [place] [address] [phone] Albumin 3.7 g/dL 3.4-4.7 Alpha-1 Globulin 0.3 g/dL 0.1-0.3 Alpha-2 Globulin 0.9 g/dL 0.6-1.0 Beta Globulin 1.0 g/dL 0.7-1.2 Gamma Globulin 1.3 g/dL 0.6-1.6 Albumin/Globulin Ratio 1.05 Impression See Comment 4 MTHFR 08/18/2019 [facility] MTHFR C677T Heterozygous Abnormal Negative [place] [address] [phone] MTHFR Interpretation See Comment 5 MTHFR Reviewed By See Comment 6 MTHFR D1665f Mutation Heterozygous Abnormal Negative Mthac Interpretation See Comment 7 Mthac Reviewed By See Comment 8 Celiac Hla 08/18/2019 [facility] Hla-Dqa1 SEE BELOW [address] [place] [address] [phone] Hla-DQB1 SEE BELOW 10 Celiac Gene Pairs Present? No Celiac Gene Interpretation See Comment 11 Vitamin B6 08/18/2019 [facility] Pyridoxal 5-Phosphate 10 g/L 5-50 [address] [place] [address] [phone] Pyridoxic Acid 8 g/L 3-30 13 Laboratory test 08/18/2019 [facility] Copper, 1.33 g/mL 0.75-1.45 14 finding [facility] [place] [address] [phone] Zinc Serum 0.78 g/mL 0.66-1.10 15 Vitamin B1 (Whole Blood) 145 nmol/L 70-180 16 T3 Reverse 20 ng/dL 10-24 17 Heavy Metal Blool 08/18/2019 [facility] Arsenic <1 ng/mL 0- [address] [place] [address] [phone] Lead <1.0 g/dL 0.0-4.9 19 Mercury <1 ng/mL 0-9 20 Cadmium 0.3 ng/mL 0.0-4.[address] DINESH VAZQUEZ <SEE NOTE> [address] [facility] [address] [facility] Guardian First Name CHERELLE Ramos Guardian Last Name CHUYITA Venous/Capillary Heavy Metals Venous Patient Race WHITE Submitting Laboratory 23 Laboratory test 08/18/2019 [facility] Methylmalonic 0.18 <= 0.40 [address] Acid Mma nmol/[place] [address] [phone] Homocysteine 6 mcmol/L 25 Arthritis Panel 08/18/2019 [facility] Uric Acid 5.4 mg/dL Normal 2.3-6.[address] [place] [address] [phone] Rheumatoid Factor < 10 IU/mL Normal <15 Erythrocyte Sed Rate 39 mm/Hr High 0-19 Anti-Nuclear Antibody 0.1 U 26 Cyclic Citrullinated Peptide <15.6 U 27 Interpretation See Comment 28 CBC Auto 08/18/2019 [facility] White Blood 8.7 10^3/uL Normal 3.5-10.[address] [place] [address] [phone] Red Blood Count 5.02 10^6/uL High 3.70-4.87 [...] Blood Cells % 0.0 Laboratory test 08/18/2019 [facility] Hemoglobin A1c 5.1 % Normal 4.0-5.6 29 finding 101 (Glyco HGB) [place] [address] [phone] Comp Metabolic 08/18/2019 [facility] Sodium 138 Normal 135- 145 Panel 101 mmol/[place] [address] [phone] Potassium 3.8 mmol/L Normal 3.5-5.0 Chloride 103 [...] Egfr 119.2 >60 30 Lipid Profile 08/18/2019 [facility] Triglycerides 78 mg/dL 31 (Trig/Chol/HDL) [address] [place] [address] [phone] Cholesterol 161 mg/dL 32 HDL Cholesterol 57.8 mg/dL 33 LDL Cholesterol 88 mg/dL 34 Laboratory test 08/18/2019 [facility] Folic Acid > 20.00 > 3.99 finding 101 (Folate) ng/[place] [address] [phone] Vitamin B12 871 pg/mL Normal 180-914 35 Insulin Level 10.3 mcIU/mL Normal 2.0-16.0 Vitamin D Total 25(Oh) 30.1 ng/mL Normal 20-50 36 Magnesium 2.0 mg/dL Normal 1.9-2.7 Thyroid 08/18/2019 [facility] Thyroid 0.84 Normal <9 Autoantibodies Peroxidase IU/[place] [address] Antibodies [phone] Thyroglobulin Antibody II 0.0 IU/mL <4.0 Laboratory test 08/18/2019 [facility] CRP High 33.60 mg/L High <2.[address] [place] [address] [phone] TSH (Thyroid Stim Horm) 0.97 mcIU/mL Normal 0.34-5.60 Free T4 (Free Thyroxine) 0.83 ng/dL Normal 0.61-1.12 Thyroxine 7.64 g/dL Normal 6.09-12.23 T3 Free 3.90 pg/mL Normal 2.5-3.9 T3 Total 107 ng/dL Normal 87-178 Ferritin 58.2 ng/mL Normal 11-307 Iron & Iron Binding 08/18/2019 [facility] Iron 41 g/dL Low 50-[address] [place] [address] [phone] Unsaturated Iron Binding < 425 g/dL Total Iron Binding Capacity 440 g/dL Normal 250-450 Transferrin 314 mg/dL Normal 203-362 % Iron Saturation 9 % Low 15-55 Laboratory test 07/01/2019 [facility] CRP High <pending> [place] [address] [phone] Laboratory test 07/01/2019 [facility] Copper, Serum <pending> [place] [address] [phone] Laboratory test 07/01/2019 [facility] Hemoglobin A1c <pending> finding DRIVE (Glyco HGB) [place] [address] [phone] Homocysteine <pending> Insulin Level <pending> Vitamin B12 And Folate 07/01/2019 [facility] Vitamin B12 < pending> Serum [address] [place] [address] [phone] Folic Acid (Folate) <pending> Laboratory test finding 07/01/2019 [facility] Vitamin B6 < pending> [address] [place] [address] [phone] Vitamin B1 (Whole Blood) <pending> Vitamin D Total 25(Oh) <pending> Zinc Serum <pending> TSH (Thyroid Stim Horm) <pending> Thyroxine <pending> Free T4 (Free Thyroxine) <pending> T3 Free <pending> T3 Reverse <pending> T3 Total <pending> Ferritin <pending> 1 SEE RESULT BELOW Name: CHERELLE BOOGIE : [address]: Yuriy Jaramillo MD Acct: [id number] Unit: [id number] AGE: 39 Location: ENDO Re11/01/19 SEX: F Status: REG REF SPEC: [id number] DYAN: 11/01/[address]: Yuriy Jaramillo MD REQ: [id number] RECD: 11/01/19 STATUS: ADRIANA SALGADO DR: Rona Arredondo INSPECTOR CRYSTAL _ SOURCE: GAS ANTRUM SPDESC: ORDERED: Clotest Procedure Result Reported Site Clotest Final 11/02/19- 07 ML Clotest Negative * ML - Main Lab . END OF REPORT DEPARTMENT OF PATHOLOGY, [address] [place] [address] Rex Guy M.D. Director [facility] # [id number] 2 SEE RESULT BELOW Name: CHERELLE BOOGIE : [address]: Yuriy Jaramillo MD Acct: [id number] Unit: [id number] AGE: 39 Location: ENDO Re11/01/19 SEX: F Status: DEP REF SPEC: [id number] DYAN: 11/01/[address] [facility] [address]: Yuriy Jaramillo MD REQ: [id number] RECD: 11/01/199502 STATUS: CASSIE SALGADO DR: Rona Arredondo INSPECTOR CRYSTAL _ ORDERED: LEVEL 4/2 ADDENDUM An H. [...] CONTINUED ON NEXT PAGE DEPARTMENT OF PATHOLOGY, [address] [place] [address] Rex Guy M.D. Director [facility] # [id number] POST-OPERATIVE DIAGNOSIS EGD: larynx - normal; esophagus [...] 1232 END OF REPORT DEPARTMENT OF PATHOLOGY, [address] [place] [address] Rex Guy M.D. Director [facility] # [id number] 3 SEE RESULT BELOW Name: CHERELLE BOOGIE : [address]: Jerson Chatterjee MD Acct: [id number] Unit: [id number] AGE: 38 Location: [facility] Re10/17/19 SEX: F Status: REG REF SPEC: [id number] DYAN: 10/17/19-16[address] [facility] [address]: Jerson Chatterjee MD REQ: [id number] RECD: 10/17/19 STATUS: SOUT _ ORDERED: TP IMAGE ANALYS, HPV/Thin Prep, HPV 16/18 GENE COMMENTS: [id number] FINAL DIAGNOSIS Negative for Intraepithelial lesion or [...] CONTINUED ON NEXT PAGE DEPARTMENT OF PATHOLOGY, [address] [place] [address] Rex Guy M.D. Director [facility] # [id number] CYTOLOGY PATIENT INFORMATION Patient Information: HPV: High risk HPV RNA testing regardless of pap results. HPV 16/18 Genotype Reflex Actual Specimen Date: 10/17/19 Last Menstrual Date: 10/08/19 ?: N Post Menopausal?: N Hysterectomy?: N Previous Abnormal Pap Smears?:N Signed by and Reported on: LIAM Donnelly (ASCP) [id number] This Pap test was evaluated with the assistance of the [employer] Test Imaging System. Due to cytologic findings at the command and control systems integrator microscope, comprehensive manual rescreening by a Laborer Drying Department may be required. The Pap Smear is [...] years. END OF REPORT DEPARTMENT OF PATHOLOGY, [address] [place] [address] Rex Guy M.D. Director [facility] # [id number] 4 RESULT: No apparent monoclonal protein on serum electrophoresis. Test Performed by: [address] [address] Bottle Capper: Danny Shah M.D. Ph.D.; CLIA# [id number] 5 This individual DOES have the Methylenetetrahydrofolate [...] therapy). If clinically indicated, suggest Coagulation Consultation 67507 (Thrombophila Profile) to complete the evaluation for an inherited or acquired thrombosing disorder (i.e., thrombophilia). Consider genetic consultation and counseling of potentially affected family members regarding laboratory testing. ADDITIONAL INFORMATION This test is a direct mutation analysis using PCR amplification, signal generation and release by cleavage of sequence specific alleles ([employer], [employer], [place], [place]). This test has been modified from the commercial real estate broker's instructions. Its performance characteristics were determined by [facility] in a manner consistent with CLIA requirements. This test has not been cleared or approved by the U.S. Food and Drug Administration. 6 RESULT: Natalia Pruitt M.D. 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 MTHAC Q1988L carriers are not at increased risk for thrombosis in the absence of hyperhomocysteinemia. In the absence of alternative causes, heterozygous carriers of MTHAC S5460R are not at increased risk for hyperhomocysteinemia. Hyperhomocysteinemia is a relatively weak risk factor for both venous thromboembolism and arterial thrombosis. The MTHAC G3984K gene mutation test does not detect other causes of hyperhomocysteinemia due to acquired disorders (renal failure, zinc deficiency, leukemia, psoriasis, or antifolate drug therapy). If clinically indicated, suggest Coagulation Consultation 59333 (Thrombophila Profile) to complete the evaluation for an inherited or acquired thrombosing disorder (i.e., thrombophilia). Consider genetic consultation and counseling of potentially affected family members regarding laboratory testing. ADDITIONAL INFORMATION This test is a direct mutation analysis using PCR amplification, signal generation and release by cleavage of sequence specific alleles ([employer], [employer], [place], [place]). This test has been modified from the commercial real estate broker's instructions. Its performance characteristics were determined by [facility] in a manner consistent with CLIA requirements. This test has not been cleared or approved by the U.S. Food and Drug Administration. 8 RESULT: Natalia Pruitt M.D. This test is a direct mutation analysis using PCR amplification, signal generation and release by cleavage of sequence specific alleles ([employer], [employer], [place], [place]). This test has been modified from the commercial real estate broker's instructions. Its performance characteristics were determined by [facility] in a manner consistent with CLIA requirements. This test has not been cleared or approved by the U.S. Food and Drug Administration. Test Performed by: [place] [address] Bottle Capper: Danny Shah M.D. Ph.D.; CLIA# [id number] 9 RESULT: 05,05 REFERENCE VALUE Not Applicable 10 RESULT: 03:01,03:01 DQ Serologic Equivalent: 7,7 REFERENCE VALUE Not Applicable 11 The absence of HLA celiac permissive genes would make the presence of celiac disease unlikely. ADDITIONAL INFORMATION Method: Molecular typing of HLA antigens performed using reverse SSOP and/or SSP methods, reported as serological equivalents and low to medium resolution molecular values. Test Performed by: [facility] - [address] [address] Bottle Capper: Danny Shah M.D. Ph.D.; CLIA# [id number] 12 ADDITIONAL INFORMATION This test was developed and its performance characteristics determined by [facility] in a manner consistent with CLIA requirements. This test has not been cleared or approved by the U.S. Food and Drug Administration. 13 ADDITIONAL INFORMATION This test was developed and its performance characteristics determined by [facility] in a manner consistent with CLIA requirements. This test has not been cleared or approved by the U.S. Food and Drug Administration. Test Performed by: [facility] [address] [place] [address] Bottle Capper: Danny Shah M.D. Ph.D.; CLIA# [id number] 14 ADDITIONAL INFORMATION This test was developed and its performance characteristics determined by [facility] in a manner consistent with CLIA requirements. This test has not been cleared or approved by the U.S. Food and Drug Administration. Test Performed by: [facility] [place] [address] Bottle Capper: Danny Shah M.D. Ph.D.; CLIA# [id number] 15 ADDITIONAL INFORMATION This test was developed and its performance characteristics determined by [facility] in a manner consistent with CLIA requirements. This test has not been cleared or approved by the U.S. Food and Drug Administration. Test Performed by: [facility] [place] [address] Bottle Capper: Danny Shah M.D. Ph.D.; CLIA# [id number] 16 ADDITIONAL INFORMATION This test was developed and its performance characteristics determined by [facility] in a manner consistent with CLIA requirements. This test has not been cleared or approved by the U.S. Food and Drug Administration. Test Performed by: [facility] [place] [address] Bottle Capper: Danny Shah M.D. Ph.D.; CLIA# [id number] 17 ADDITIONAL INFORMATION This test was developed and its performance characteristics determined by [facility] in a manner consistent with CLIA requirements. This test has not been cleared or approved by the U.S. Food and Drug Administration. Test Performed by: [facility] [place] [address] Bottle Capper: Danny Shah M.D. Ph.D.; CLIA# [id number] 18 ADDITIONAL INFORMATION This test was developed and its performance characteristics determined by [facility] in a manner consistent with CLIA requirements. This test has not been cleared or approved by the U.S. Food and Drug Administration. 19 ADDITIONAL INFORMATION Testing performed by Inductively Coupled Plasma-Mass Spectrometry (ICP-MS). This test was developed and its performance characteristics determined by [facility] in a manner consistent with CLIA requirements. This test has not been cleared or approved by the U.S. Food and Drug Administration. 20 ADDITIONAL INFORMATION This test was developed and its performance characteristics determined by [facility] in a manner consistent with CLIA requirements. This test has not been cleared or approved by the U.S. Food and Drug Administration. 21 ADDITIONAL INFORMATION This test was developed and its performance characteristics determined by [facility] in a manner consistent with CLIA requirements. This test has not been cleared or approved by the U.S. Food and Drug Administration. 22 13 CureVac 23 Test Performed by: [facility] [address] [place] [address] Bottle Capper: Danny Shah M.D. Ph.D.; CLIA# [id number] 24 ADDITIONAL INFORMATION This test was developed and its performance characteristics determined by [facility] in a manner consistent with CLIA requirements. This test has not been cleared or approved by the U.S. Food and Drug Administration. Test Performed by: [facility] - [address] [address] Bottle Capper: Danny Shah M.D. Ph.D.; CLIA# [id number] 25 REFERENCE VALUE <=13 (Fasting) ADDITIONAL INFORMATION This test was developed and its performance characteristics determined by [facility] in a manner consistent with CLIA requirements. This test has not been cleared or approved by the U.S. Food and Drug Administration. Test Performed by: [facility] - [address] [address] Bottle Capper: Danny Shah M.D. Ph.D.; CLIA# [id number] 26 REFERENCE VALUE <=1.0 (Negative) 27 REFERENCE VALUE <20.0 (Negative) 28 Tests for antibodies to dsDNA and JESSICA antigens are not performed automatically unless the MAX result is > or = 3.0 U. Studies performed at [facility] indicate that positive MAX results <3.0 U are rarely accompanied by positive second order tests. Test Performed by: [facility] [address] [place] [address] Bottle Capper: Danny Shah M.D. Ph.D.; CLIA# [id number] 29 Therapeutic target for the treatment of diabetes mellitus patients is <7% HBA1C, and in selective patients <6.0%. Please refer to [place] [employer] diabetic care guidelines for further [...] possible) Procedures Date Code Description Status 11/01/2019 58245 Endoscopy Upper GI Biopsy Completed 11/01/2019 07451184 Colonoscopy Completed Medical Devices Description No Information Available Encounters Type Date Location Provider Dx Diagnosis Office Visit 11/07/2019 [facility] Haider Camacho, S76.112A Strain of left 11:00a at [facility].DTarik quadriceps muscle, fascia and tendon, init Office Visit 10/17/2019 [facility] Jerson Chatterjee, Z01.419 Encntr for dental practitioner 4:00p [facility] exam (general) (routine) w/o abn findings R10.32 Left lower quadrant pain Office 10/07/2019 [facility] Trinh K21.0 Gastro-esophageal Visit 9:15a Trupti reflux disease with BowdenADRIANA eaton esophagitis D64.9 Anemia, unspecified R10.84 Generalized abdominal pain Office Visit 09/09/2019 11:00a [facility] Reji Lopez, M54.2 [facility] M62.838 Other muscle spasm M79.7 Fibromyalgia R70.0 Elevated erythrocyte sedimentation rate D50.9 Iron deficiency anemia, unspecified Office Visit 08/19/2019 9:00a [facility] Hernandez, G89.4 Chronic pain [facility] INSPECTOR CRYSTAL syndrome R53.82 Chronic fatigue, unspecified Office Visit 07/01/2019 8:00a [facility], R53.82 Chronic fatigue, [facility] INSPECTOR CRYSTAL unspecified G89.4 Chronic pain syndrome R14.0 Abdominal distension (gaseous) N94.3 Premenstrual tension syndrome F41.9 Anxiety disorder, unspecified Assessments Date Code Description Provider 12/02/2019 N80.9 Endometriosis, unspecified Jerson Chatterjee MD 11/16/2019 G89.4 Chronic pain syndrome Raquel Burch, INSPECTOR CRYSTAL 11/07/2019 S76.112A Strain of left quadriceps muscle, [...] 08/19/2019 G89.4 Chronic pain syndrome Raquel Hernandez, INSPECTOR CRYSTAL 08/19/2019 R53.82 Chronic fatigue, unspecified Raquelvinny Hernandez, INSPECTOR CRYSTAL 07/01/2019 R53.82 Chronic fatigue, unspecified Raquelvinny Hernandez, INSPECTOR CRYSTAL 07/01/2019 G89.4 Chronic pain syndrome Raquel Kuch, INSPECTOR CRYSTAL 07/01/2019 R14.0 Abdominal distension (gaseous) Raquel Hernandez, INSPECTOR CRYSTAL 07/01/2019 N94.3 Premenstrual tension syndrome Raquel Hernandez, INSPECTOR CRYSTAL 07/01/2019 F41.9 Anxiety disorder, unspecified Raquel Hernandez NP Plan of Treatment Future Appointment(s):10/22/2020 9:30 am - Jerson [facility] at [facility]12/21/2019 11:00 am - Raquel Hernandez NP at [facility]01/02/2020 3:45 pm - Yuriy Jaramillo MD at [facility] Dyzidfffgtrgjpjz98/19/ 2020 8:30 am - Reji Lopez MD at [facility]2019 - Jerson Chatterjee MDN80.9 Endometriosis, unspecifiedFollow up:Annual 10/2020 Functional Status Description No Information Available Mental Status Description No Information Available Referrals Refer to Dr Reason for Referral Status Appt Date Yuriy Jaramillo MD History of gastric ulcer with ongoing GERD Sent 2018 symptoms and iron deficiency anemia; please evaluate and treat [address] [place] [address] [phone] Anastacio Hillman MD Sent 09/09/2019 [facility] [place] [address] [place] [address] [phone]
--- OUTSIDE RECORDS SUMMARY | 2020-01-23 19:52 | XMS REPORT | Continuity of Care Document ---
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 [phone] Practitioner Problems Active Problems Provider Date Asthma [...] capsule Unknown by mouth daily 1000Unit Capsules Yolgqzg-Tdlqyzrvb-Blnw 3 tablets by Unknown mouth daily 333-133-5mg [...] % BMI (Body Mass Index) 27.6 kg/m2 12/02/2019 11:40am Height 66 inches 5'6" Weight 175.00 lb Heart Rate 96 /min BP Systolic 114 mmHg BP Diastolic 70 mmHg O2 % BldC Oximetry 97 % BMI (Body Mass Index) 28.2 kg/m2 Results Test Acquired Date Facility Test Result H/L Range Note Laboratory test 11/01/2019 [facility] Clotest SEE RESULT [address] [place] [address] [phone] Surgical 11/01/2019 [facility] Surgical SEE RESULT [address] [place] [address] [phone] PDFReport SEE IMAGE Cytology 10/17/2019 [facility] Cytology SEE RESULT BELOW [address] [facility] [address] [phone] PDFReport SEE IMAGE Iron & Iron Binding 10/11/2019 [facility] Iron 85 g/dL Normal 50-[address] [place] [address] [phone] Unsaturated Iron Binding < 429 g/dL Total Iron Binding Capacity 444 g/dL Normal 250-450 Transferrin 317 mg/dL Normal 203-362 % Iron Saturation 19 % Normal 15-55 Laboratory test 10/11/2019 [facility] Ferritin 31.2 Normal 11- [address] ng/[place] [address] [phone] CBC Auto Diff 10/11/2019 [facility] White Blood 5.6 Normal 3.5 -10.[address] Count 10^3/[place] [address] [phone] Red Blood Count 4.85 10^6/uL Normal 3.70-4.87 [...] Blood Cells % 0.1 Laboratory test 10/11/2019 [facility] C Reactive 2.35 mg/L Normal <8.[address] [place] [address] [phone] Erythrocyte Sed Rate 10 mm/Hr Normal 0-19 Urinalysis Profile 10/11/2019 [facility] Urine Color Denise [address] [place] [address] [phone] Urine Appearance Cloudy Urine Specific [place] 1.009 Low 1.010-1.030 Urine pH 6.0 Normal [...] Epithelial Cell Present Abnormal Absent Protein 10/11/2019 [facility] Total 7.2 g/dL 6.3 - Electrophoresis [address] Protein(Pep) 7.9 [place] [address] [phone] Albumin 3.7 g/dL 3.4-4.7 Alpha-1 Globulin 0.3 g/dL 0.1-0.3 Alpha-2 Globulin 0.9 g/dL 0.6-1.0 Beta Globulin 1.0 g/dL 0.7-1.2 Gamma Globulin 1.3 g/dL 0.6-1.6 Albumin/Globulin Ratio 1.05 Impression See Comment 4 MTHFR 08/18/2019 [facility] MTHFR C677T Heterozygous Abnormal Negative Mutation [address] [place] [address] [phone] MTHFR Interpretation See Comment 5 MTHFR Reviewed By See Comment 6 MTHFR U0820j Mutation Heterozygous Abnormal Negative Mthac Interpretation See Comment 7 Mthac Reviewed By See Comment 8 Celiac Hla 08/18/2019 [facility] Hla-Dqa1 SEE BELOW [address] [place] [address] [phone] Hla-DQB1 SEE BELOW 10 Celiac Gene Pairs Present? No Celiac Gene Interpretation See Comment 11 Vitamin B6 08/18/2019 [facility] Pyridoxal 5-Phosphate 10 g/L 5-[address] [place] [address] [phone] Pyridoxic Acid 8 g/L 3-30 13 Laboratory test 08/18/2019 [facility] Copper, 1.33 g/mL 0.75-1.[address] [place] [address] [phone] Zinc Serum 0.78 g/mL 0.66-1.10 15 Vitamin B1 (Whole Blood) 145 nmol/L 70-180 16 T3 Reverse 20 ng/dL 10-24 17 Heavy Metal Blool 08/18/2019 [facility] Arsenic <1 ng/mL 0- [address] [place] [address] [phone] Lead <1.0 g/dL 0.0-4.9 19 Mercury <1 ng/mL 0-9 20 Cadmium 0.3 ng/mL 0.0-4.[address] DINESH VAZQUEZ <SEE NOTE> [address] [facility] [place] [address] [facility] Guardian First Name CHERELLE Ramos Guardian Last Name CHUYITA Venous/Capillary Heavy Metals Venous Patient Race WHITE Submitting Laboratory 23 Laboratory test 08/18/2019 [facility] Methylmalonic 0.18 <= 0.[address] Acid Mma nmol/[place] [address] [phone] Homocysteine 6 mcmol/L 25 Arthritis Panel 08/18/2019 [facility] Uric Acid 5.4 mg/dL Normal 2.3-6.[address] [place] [address] [phone] Rheumatoid Factor < 10 IU/mL Normal <15 Erythrocyte Sed Rate 39 mm/Hr High 0-19 Anti-Nuclear Antibody 0.1 U 26 Cyclic Citrullinated Peptide <15.6 U 27 Interpretation See Comment 28 CBC Auto 08/18/2019 [facility] White Blood 8.7 10^3/uL Normal 3.5-10.[address] [place] [address] [phone] Red Blood Count 5.02 10^6/uL High 3.70-4.87 [...] Blood Cells % 0.0 Laboratory test 08/18/2019 [facility] Hemoglobin A1c 5.1 % Normal 4.0-5.[address] (Glyco HGB) [place] [address] [phone] Comp Metabolic 08/18/2019 [facility] Sodium 138 Normal 135- [address] mmol/[place] [address] [phone] Potassium 3.8 mmol/L Normal 3.5-5.0 Chloride 103 [...] Egfr 119.2 >60 30 Lipid Profile 08/18/2019 [facility] Triglycerides 78 mg/dL 31 (Trig/Chol/HDL) [address] [place] [address] [phone] Cholesterol 161 mg/dL 32 HDL Cholesterol 57.8 mg/dL 33 LDL Cholesterol 88 mg/dL 34 Laboratory test 08/18/2019 [facility] Folic Acid > 20.00 > 3.99 finding (Folate) ng/[place] [address] [phone] Vitamin B12 871 pg/mL Normal 180-914 35 Insulin Level 10.3 mcIU/mL Normal 2.0-16.0 Vitamin D Total 25(Oh) 30.1 ng/mL Normal 20-50 36 Magnesium 2.0 mg/dL Normal 1.9-2.7 Thyroid 08/18/2019 [facility] Thyroid 0.84 Normal <9 Autoantibodies Peroxidase IU/[place] [address] Antibodies [phone] Thyroglobulin Antibody II 0.0 IU/mL <4.0 Laboratory test 08/18/2019 [facility] CRP High 33.60 mg/L High <2.[address] [place] [address] [phone] TSH (Thyroid Stim Horm) 0.97 mcIU/mL Normal 0.34-5.60 Free T4 (Free Thyroxine) 0.83 ng/dL Normal 0.61-1.12 Thyroxine 7.64 g/dL Normal 6.09-12.23 T3 Free 3.90 pg/mL Normal 2.5-3.9 T3 Total 107 ng/dL Normal 87-178 Ferritin 58.2 ng/mL Normal 11-307 Iron & Iron Binding 08/18/2019 [facility] Iron 41 g/dL Low 50-212 [place] [address] [phone] Unsaturated Iron Binding < 425 g/dL Total Iron Binding Capacity 440 g/dL Normal 250-450 Transferrin 314 mg/dL Normal 203-362 % Iron Saturation 9 % Low 15-55 Laboratory test 07/01/2019 [facility] CRP High <pending> finding [address] [place] [address] [phone] Laboratory test 07/01/2019 [facility] Copper, Serum <pending> [place] [address] [phone] Laboratory test 07/01/2019 [facility] Hemoglobin A1c <pending> finding (Glyco HGB) [place] [address] [phone] Homocysteine <pending> Insulin Level <pending> Vitamin B12 And Folate 07/01/2019 [facility] Vitamin B12 < pending> Serum [address] [place] [address] [phone] Folic Acid (Folate) <pending> Laboratory test finding 07/01/2019 [facility] Vitamin B6 < pending> [address] [place] [address] [phone] Vitamin B1 (Whole Blood) <pending> Vitamin D Total 25(Oh) <pending> Zinc Serum <pending> TSH (Thyroid Stim Horm) <pending> Thyroxine <pending> Free T4 (Free Thyroxine) <pending> T3 Free <pending> T3 Reverse <pending> T3 Total <pending> Ferritin <pending> 1 SEE RESULT BELOW Name: CHERELLE BOOGIE Rachel : [address]: Yuriy Jaramillo MD Acct: [id number] Unit: [id number] AGE: 39 Location: [facility] Re11/01/19 SEX: F Status: REG REF SPEC: [id number] DYAN: 11/01/19 [facility] DR: Yuriy Jaramillo MD REQ: [id number] RECD: 11/01/191317 STATUS: ADRIANA SALGADO DR: Rona Arredondo BLOOD TYPER _ SOURCE: GAS ANTRUM SPDESC: ORDERED: Clotest Procedure Result Reported Site Clotest Final 11/02/19- 07 ML Clotest Negative * ML - Main Lab . END OF REPORT DEPARTMENT OF PATHOLOGY, [address] [place] [address] Rex Guy M.D. Director [facility] # [id number] 2 SEE RESULT BELOW Name: CHERELLE BOOGIE : [address]: Yuriy Jaramillo MD Acct: [id number] Unit: [id number] AGE: 39 Location: ENDO Re11/01/19 SEX: F Status: DEP REF SPEC: [id number] DYAN: 11/01/[address]: Yuriy Jaramillo MD REQ: [id number] RECD: 11/01/196 STATUS: CASSIE SALGADO DR: Rona Arredondo BLOOD TYPER _ ORDERED: LEVEL 4/2 ADDENDUM An H. [...] CONTINUED ON NEXT PAGE DEPARTMENT OF PATHOLOGY, [address] [place] [address] Rex Guy M.D. Director [facility] # [id number] POST-OPERATIVE DIAGNOSIS EGD: larynx - normal; esophagus [...] 1232 END OF REPORT DEPARTMENT OF PATHOLOGY, [address] [place] [address] Rex Guy M.D. Director [facility] # [id number] 3 SEE RESULT BELOW Name: CHERELLE BOOGIE : [address]: Jerson Chatterjee MD Acct: [id number] Unit: [id number] AGE: 38 Location: [facility] Re10/17/19 SEX: F Status: REG REF SPEC: [id number] DYAN: 10/17/19-1617 [facility] DR: Jerson Chatterjee MD REQ: [id number] RECD: 10/17/19 STATUS: SOUT _ ORDERED: TP IMAGE ANALYS, HPV/Thin Prep, HPV 16/18 GENE COMMENTS: [id number] FINAL DIAGNOSIS Negative for Intraepithelial lesion or [...] CONTINUED ON NEXT PAGE DEPARTMENT OF PATHOLOGY, [address] [place] [address] Rex Guy M.D. Director [facility] # [id number] CYTOLOGY PATIENT INFORMATION Patient Information: HPV: High risk HPV RNA testing regardless of pap results. HPV 16/18 Genotype Reflex Actual Specimen Date: 10/17/19 Last Menstrual Date: 10/08/19 ?: N Post Menopausal?: N Hysterectomy?: N Previous Abnormal Pap Smears?:N Signed by and Reported on: LIAM Donnelly (ASCP) 7550 This Pap test was evaluated with the assistance of the [employer] Test Imaging System. Due to cytologic findings at the automated equipment engineer technician microscope, comprehensive manual rescreening by a Middle School Music Teacher may be required. The Pap Smear is [...] years. END OF REPORT DEPARTMENT OF PATHOLOGY, [address] [place] [address] Rex Guy M.D. Director [place] # [id number] 4 RESULT: No apparent monoclonal protein on serum electrophoresis. Test Performed by: [place] [address] Youth Development Professional: Danny Shah M.D. Ph.D.; CLIA# [id number] 5 This individual DOES have the Methylenetetrahydrofolate [...] therapy). If clinically indicated, suggest Coagulation Consultation 41264 (Thrombophila Profile) to complete the evaluation for an inherited or acquired thrombosing disorder (i.e., thrombophilia). Consider genetic consultation and counseling of potentially affected family members regarding laboratory testing. ADDITIONAL INFORMATION This test is a direct mutation analysis using PCR amplification, signal generation and release by cleavage of sequence specific alleles ([employer], [employer], [place], [place]). This test has been modified from the wireless manager's instructions. Its performance characteristics were determined by [facility] in a manner consistent with CLIA requirements. This test has not been cleared or approved by the U.S. Food and Drug Administration. 6 RESULT: Natalia Pruitt M.D. 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 MTHAC U8181F carriers are not at increased risk for thrombosis in the absence of hyperhomocysteinemia. In the absence of alternative causes, heterozygous carriers of MTHAC D6646Q are not at increased risk for hyperhomocysteinemia. Hyperhomocysteinemia is a relatively weak risk factor for both venous thromboembolism and arterial thrombosis. The MTHAC F4927N gene mutation test does not detect other causes of hyperhomocysteinemia due to acquired disorders (renal failure, zinc deficiency, leukemia, psoriasis, or antifolate drug therapy). If clinically indicated, suggest Coagulation Consultation 85520 (Thrombophila Profile) to complete the evaluation for an inherited or acquired thrombosing disorder (i.e., thrombophilia). Consider genetic consultation and counseling of potentially affected family members regarding laboratory testing. ADDITIONAL INFORMATION This test is a direct mutation analysis using PCR amplification, signal generation and release by cleavage of sequence specific alleles ([employer], [employer], [place], [place]). This test has been modified from the wireless manager's instructions. Its performance characteristics were determined by [facility] in a manner consistent with CLIA requirements. This test has not been cleared or approved by the U.S. Food and Drug Administration. 8 RESULT: Natalia Pruitt M.D. This test is a direct mutation analysis using PCR amplification, signal generation and release by cleavage of sequence specific alleles ([employer], [employer], [place], [place]). This test has been modified from the wireless manager's instructions. Its performance characteristics were determined by [facility] in a manner consistent with CLIA requirements. This test has not been cleared or approved by the U.S. Food and Drug Administration. Test Performed by: [facility] - [address] [address] Youth Development Professional: Danny Shah M.D. Ph.D.; CLIA# [id number] 9 RESULT: ,05 REFERENCE VALUE Not Applicable 10 RESULT: 03:01,03:01 DQ Serologic Equivalent: 7,7 REFERENCE VALUE Not Applicable 11 The absence of HLA celiac permissive genes would make the presence of celiac disease unlikely. ADDITIONAL INFORMATION Method: Molecular typing of HLA antigens performed using reverse SSOP and/or SSP methods, reported as serological equivalents and low to medium resolution molecular values. Test Performed by: [facility] - [address] [address] Youth Development Professional: Danny Shah M.D. Ph.D.; CLIA# [id number] 12 ADDITIONAL INFORMATION This test was developed and its performance characteristics determined by [facility] in a manner consistent with CLIA requirements. This test has not been cleared or approved by the U.S. Food and Drug Administration. 13 ADDITIONAL INFORMATION This test was developed and its performance characteristics determined by [facility] in a manner consistent with CLIA requirements. This test has not been cleared or approved by the U.S. Food and Drug Administration. Test Performed by: [facility] [employer] [facility] [address] [place] [address] Youth Development Professional: Danny Shah M.D. Ph.D.; CLIA# [id number] 14 ADDITIONAL INFORMATION This test was developed and its performance characteristics determined by [facility] in a manner consistent with CLIA requirements. This test has not been cleared or approved by the U.S. Food and Drug Administration. Test Performed by: [facility] [place] [address] Youth Development Professional: Danny Shah M.D. Ph.D.; CLIA# [id number] 15 ADDITIONAL INFORMATION This test was developed and its performance characteristics determined by [facility] in a manner consistent with CLIA requirements. This test has not been cleared or approved by the U.S. Food and Drug Administration. Test Performed by: [facility] [place] [address] Youth Development Professional: Danny Shah M.D. Ph.D.; CLIA# [id number] 16 ADDITIONAL INFORMATION This test was developed and its performance characteristics determined by [facility] in a manner consistent with CLIA requirements. This test has not been cleared or approved by the U.S. Food and Drug Administration. Test Performed by: [facility] [place] [address] Youth Development Professional: Danny Shah M.D. Ph.D.; CLIA# [id number] 17 ADDITIONAL INFORMATION This test was developed and its performance characteristics determined by [facility] in a manner consistent with CLIA requirements. This test has not been cleared or approved by the U.S. Food and Drug Administration. Test Performed by: [facility] - [address] [address] Youth Development Professional: Danny Shah M.D. Ph.D.; CLIA# [id number] 18 ADDITIONAL INFORMATION This test was developed and its performance characteristics determined by [facility] in a manner consistent with CLIA requirements. This test has not been cleared or approved by the U.S. Food and Drug Administration. 19 ADDITIONAL INFORMATION Testing performed by Inductively Coupled Plasma-Mass Spectrometry (ICP-MS). This test was developed and its performance characteristics determined by [facility] in a manner consistent with CLIA requirements. This test has not been cleared or approved by the U.S. Food and Drug Administration. 20 ADDITIONAL INFORMATION This test was developed and its performance characteristics determined by [facility] in a manner consistent with CLIA requirements. This test has not been cleared or approved by the U.S. Food and Drug Administration. 21 ADDITIONAL INFORMATION This test was developed and its performance characteristics determined by [facility] in a manner consistent with CLIA requirements. This test has not been cleared or approved by the U.S. Food and Drug Administration. 22 13 [employer] 23 Test Performed by: [facility] [place] [address] Youth Development Professional: Danny Shah M.D. Ph.D.; CLIA# [id number] 24 ADDITIONAL INFORMATION This test was developed and its performance characteristics determined by [facility] in a manner consistent with CLIA requirements. This test has not been cleared or approved by the U.S. Food and Drug Administration. Test Performed by: [facility] [place] [address] Youth Development Professional: Danny Shah M.D. Ph.D.; CLIA# [id number] 25 REFERENCE VALUE <=13 (Fasting) ADDITIONAL INFORMATION This test was developed and its performance characteristics determined by [facility] in a manner consistent with CLIA requirements. This test has not been cleared or approved by the U.S. Food and Drug Administration. Test Performed by: [facility] - [facility] [address] [place] [address] Youth Development Professional: Danny Shah M.D. Ph.D.; CLIA# [id number] 26 REFERENCE VALUE <=1.0 (Negative) 27 REFERENCE VALUE <20.0 (Negative) 28 Tests for antibodies to dsDNA and JESSICA antigens are not performed automatically unless the MAX result is > or = 3.0 U. Studies performed at [facility] indicate that positive MAX results <3.0 U are rarely accompanied by positive second order tests. Test Performed by: [facility] - [facility] [address] [place] [address] Youth Development Professional: Danny Shah M.D. Ph.D.; CLIA# [id number] 29 Therapeutic target for the treatment of diabetes mellitus patients is <7% HBA1C, and in selective patients <6.0%. Please refer to [place] [employer] diabetic care guidelines for further [...] (toxicity possible) Procedures Date Code Description Status 12/21/2019 90756 Trigger PT Inj(S) Single Or Multiple Points 1 Or 2 Completed Muscles 11/01/2019 20919 Endoscopy Upper GI Biopsy Completed 11/01/2019 52850147 Colonoscopy Completed Medical Devices Description No Information Available Encounters Type Date Location Provider Dx Diagnosis Office Visit 12/02/2019 [facility] Jerson Chatterjee MD R10.32 Left lower 11:30a [facility] quadrant pain N94.6 Dysmenorrhea, unspecified N92.0 Excessive and frequent menstruation with regular cycle N80.9 Endometriosis, unspecified Office Visit 11/07/2019 11:00a [facility] Haider Camacho, S76.112A Strain of left at [place] M.DTarik quadriceps muscle, fascia and tendon, init Office Visit 10/17/2019 4:00p 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 MD Sen exam (general) (routine) w/o abn findings R10.32 Left lower quadrant pain Office 10/07/2019 [facility] Gastroenterology Trinh K21.0 Gastro-esophageal Visit 9:15a Trupti reflux disease with BowdenADRIANA eaton esophagitis D64.9 Anemia, unspecified R10.84 Generalized abdominal pain Office Visit 09/09/2019 11:00a [facility] Reji Lopez, M54.[address] [facility] - [place] FLORES M62.838 Other muscle spasm M79.7 Fibromyalgia R70.0 Elevated erythrocyte sedimentation rate D50.9 Iron deficiency anemia, unspecified Office Visit 08/19/2019 9:00a [facility] Raquel Hernandez, G89.[address] [facility] BLOOD TYPER syndrome R53.82 Chronic fatigue, unspecified Office Visit 07/01/2019 8:00a [facility] Raquel Hernandez, R53.82 Chronic fatigue, [facility] BLOOD TYPER unspecified G89.4 Chronic pain syndrome R14.0 Abdominal distension (gaseous) N94.3 Premenstrual tension syndrome F41.9 Anxiety disorder, unspecified Assessments Date Code Description Provider 12/21/2019 M79.7 Fibromyalgia Raquel Hernandez NP 12/21/2019 [...] MD regular cycle 12/02/2019 N80.9 Endometriosis, unspecified Jersno Chatterjee MD 11/16/2019 G89.4 Chronic pain syndrome Raquel Hernandez, ADRIANA 11/07/2019 S76.112A Strain of left quadriceps muscle, [...] Gastro-esophageal reflux disease with Trinh Bowden esophagitis BLOOD TYPER 10/07/2019 D64.9 Anemia, unspecified Trinh Bowden, ADRIANA 10/07/2019 R10.84 Generalized abdominal pain Trinh Bowden NP 09/09/2019 M54.2 Neck pain Reji Lopez MD 09/09/2019 M62.838 Muscle spasms of head And/Or neck Reji Lopez MD 09/09/2019 M79.7 Fibromyalgia Reji Lopez MD 09/09/2019 R70.0 Esr raised Reji Lopez MD 09/09/2019 D50.9 Iron deficiency anemia Reji Lopez MD 08/19/2019 G89.4 Chronic pain syndrome Raquel Hernandez, ADRIANA 08/19/2019 R53.82 Chronic fatigue, unspecified Raquel Hernandez, BLOOD TYPER 07/01/2019 R53.82 Chronic fatigue, unspecified Raquel Hernandez, BLOOD TYPER 07/01/2019 G89.4 Chronic pain syndrome Raquel Hernandez, BLOOD TYPER 07/01/2019 R14.0 Abdominal distension (gaseous) Raquel Hernandez NP 07/01/2019 N94.3 Premenstrual tension syndrome Raquel Hernandez, ADRIANA 07/01/2019 F41.9 Anxiety disorder, unspecified Raquel Hernandez NP Plan of Treatment Future Appointment(s):01/25/2020 8:00 am - Raquel Hernandez NP at [facility]02/22/2020 8:00 am - Reji Lopez MD at [facility] - [facility]10/22/2020 9:30 am - Jerson Chatterjee MD at [facility]01/02/2020 3:45 pm - Yuriy Jaramillo MD at [facility] Hmkphzxzkqjoammk27/19/2020 - Reji Lopez, MDM62.838 Other muscle spasmNew Medication:Cyclobenzaprine HCL 5 mg - take 5mg at night before bedtimeNew Therapy:Physical TherapyFollow up:2 mbxogrJ13.7 FibromyalgiaComments:consider taper of zoloft and starting cymbalta or effexor Functional Status Description No Information Available Mental Status Description No Information Available Referrals Refer to Dr Reason for Referral Status Appt Date Yuriy Jaramillo MD History of gastric ulcer with ongoing GERD Sent 2018 symptoms and iron deficiency anemia; please evaluate and treat [address] [place] [address] [phone] Anastacio Hillman MD Sent 09/09/2019 [address] [place] [address] [place] [address] [phone]
--- OUTSIDE RECORDS SUMMARY | 2020-01-23 19:52 | XMS REPORT | Continuity of Care Document ---
:1980 External Reference #:[id number] Author Name Raquel Hernandez NP (transmitted by agent of provider Melissa Amador) Address [address] [facility], [place] [address] Care Team Providers Name Role Phone Rona Arredondo NP - Nurse Care Team Information Leather Goods Maker [phone] Practitioner Problems Active Problems Provider Date Asthma [...] capsule Unknown by mouth daily 1000Unit Capsules Ckurjhs-Psprimsbv-Gvwv 3 tablets by Unknown mouth daily 333-133-5mg [...] Result H/L Range Note Laboratory test 11/01/2019 [facility] Clotest SEE RESULT [address] [place] [address] [phone] Surgical 11/01/2019 [facility] Surgical SEE RESULT [address] [place] [address] [phone] PDFReport SEE IMAGE Cytology 10/17/2019 [facility] Cytology SEE RESULT BELOW [address] [place] [address] [phone] PDFReport SEE IMAGE Iron & Iron Binding 10/11/2019 [facility] Iron 85 g/dL Normal 50-[address] [place] [address] [phone] Unsaturated Iron Binding < 429 g/dL Total Iron Binding Capacity 444 g/dL Normal 250-450 Transferrin 317 mg/dL Normal 203-362 % Iron Saturation 19 % Normal 15-55 Laboratory test 10/11/2019 [facility] Ferritin 31.2 Normal 11- [address] ng/[place] [address] [phone] CBC Auto Diff 10/11/2019 [facility] White Blood 5.6 Normal 3.5 -10.[address] Count 10^3/[place] [address] [phone] Red Blood Count 4.85 10^6/uL Normal 3.70-4.87 [...] Blood Cells % 0.1 Laboratory test 10/11/2019 [facility] C Reactive 2.35 mg/L Normal <8.[address] [place] [address] [phone] Erythrocyte Sed Rate 10 mm/Hr Normal 0-19 Urinalysis Profile 10/11/2019 [facility] Urine Color Den[place] [address] [place] [address] [phone] Urine Appearance Cloudy Urine Specific [place] 1.009 Low 1.010-1.030 Urine pH 6.0 Normal [...] Epithelial Cell Present Abnormal Absent Protein 10/11/2019 [facility] Total 7.2 g/dL 6.3 - Electrophoresis [address] Protein(Pep) 7.9 [place] [address] [phone] Albumin 3.7 g/dL 3.4-4.7 Alpha-1 Globulin 0.3 g/dL 0.1-0.3 Alpha-2 Globulin 0.9 g/dL 0.6-1.0 Beta Globulin 1.0 g/dL 0.7-1.2 Gamma Globulin 1.3 g/dL 0.6-1.6 Albumin/Globulin Ratio 1.05 Impression See Comment 4 MTHFR 08/18/2019 [facility] MTHFR C677T Heterozygous Abnormal Negative Mutation [address] [place] [address] [phone] MTHFR Interpretation See Comment 5 MTHFR Reviewed By See Comment 6 MTHFR W9120o Mutation Heterozygous Abnormal Negative Mthac Interpretation See Comment 7 Mthac Reviewed By See Comment 8 Celiac Hla 08/18/2019 [facility] Hla-Dqa1 SEE BELOW [address] [place] [address] [phone] Hla-DQB1 SEE BELOW 10 Celiac Gene Pairs Present? No Celiac Gene Interpretation See Comment 11 Vitamin B6 08/18/2019 [facility] Pyridoxal 5-Phosphate 10 g/L 5-[address] [place] [address] [phone] Pyridoxic Acid 8 g/L 3-30 13 Laboratory test 08/18/2019 [facility] Copper, 1.33 g/mL 0.75-1.[address] [place] [address] [phone] Zinc Serum 0.78 g/mL 0.66-1.10 15 Vitamin B1 (Whole Blood) 145 nmol/L 70-180 16 T3 Reverse 20 ng/dL 10-24 17 Heavy Metal Blool 08/18/2019 [facility] Arsenic <1 ng/mL 0- [address] [place] [address] [phone] Lead <1.0 g/dL 0.0-4.9 19 Mercury <1 ng/mL 0-9 20 Cadmium 0.3 ng/mL 0.0-4.[address] VAZQUEZ <SEE NOTE> [address] [facility] [place] [address] [facility] First Name CHERELLE Ramos Guardian Last Name CHUYITA Venous/Capillary Heavy Metals Venous Patient Race WHITE Submitting Laboratory 23 Laboratory test 08/18/2019 [facility] Methylmalonic 0.18 <= 0.[address] Acid Mma nmol/[place] [address] [phone] Homocysteine 6 mcmol/L 25 Arthritis Panel 08/18/2019 [facility] Uric Acid 5.4 mg/dL Normal 2.3-6.[address] [place] [address] [phone] Rheumatoid Factor < 10 IU/mL Normal <15 Erythrocyte Sed Rate 39 mm/Hr High 0-19 Anti-Nuclear Antibody 0.1 U 26 Cyclic Citrullinated Peptide <15.6 U 27 Interpretation See Comment 28 CBC Auto 08/18/2019 [facility] White Blood 8.7 10^3/uL Normal 3.5-10.[address] [place] [address] [phone] Red Blood Count 5.02 10^6/uL High 3.70-4.87 [...] Blood Cells % 0.0 Laboratory test 08/18/2019 [facility] Hemoglobin A1c 5.1 % Normal 4.0-5.[address] (Glyco HGB) [place] [address] [phone] Comp Metabolic 08/18/2019 [facility] Sodium 138 Normal 135- [address] mmol/[place] [address] [phone] Potassium 3.8 mmol/L Normal 3.5-5.0 Chloride 103 [...] Egfr 119.2 >60 30 Lipid Profile 08/18/2019 [facility] Triglycerides 78 mg/dL 31 (Trig/Chol/HDL) [address] [place] [address] [phone] Cholesterol 161 mg/dL 32 HDL Cholesterol 57.8 mg/dL 33 LDL Cholesterol 88 mg/dL 34 Laboratory test 08/18/2019 [facility] Folic Acid > 20.00 > 3.99 finding (Folate) ng/[place] [address] [phone] Vitamin B12 871 pg/mL Normal 180-914 35 Insulin Level 10.3 mcIU/mL Normal 2.0-16.0 Vitamin D Total 25(Oh) 30.1 ng/mL Normal 20-50 36 Magnesium 2.0 mg/dL Normal 1.9-2.7 Thyroid 08/18/2019 [facility] Thyroid 0.84 Normal <9 Autoantibodies Peroxidase IU/[place] [address] Antibodies [phone] Thyroglobulin Antibody II 0.0 IU/mL <4.0 Laboratory test 08/18/2019 [facility] CRP High 33.60 mg/L High <2.[address] [place] [address] [phone] TSH (Thyroid Stim Horm) 0.97 mcIU/mL Normal 0.34-5.60 Free T4 (Free Thyroxine) 0.83 ng/dL Normal 0.61-1.12 Thyroxine 7.64 g/dL Normal 6.09-12.23 T3 Free 3.90 pg/mL Normal 2.5-3.9 T3 Total 107 ng/dL Normal 87-178 Ferritin 58.2 ng/mL Normal 11-307 Iron & Iron Binding 08/18/2019 [facility] Iron 41 g/dL Low 50-212 [address]acity [address] [place] [address] [phone] Unsaturated Iron Binding < 425 g/dL Total Iron Binding Capacity 440 g/dL Normal 250-450 Transferrin 314 mg/dL Normal 203-362 % Iron Saturation 9 % Low 15-55 Laboratory test 07/01/2019 [facility] CRP High <pending> finding [address] [place] [address] [phone] Laboratory test 07/01/2019 [facility] Copper, Serum <pending> finding [address] [place] [address] [phone] Laboratory test 07/01/2019 [facility] Hemoglobin A1c <pending> finding 101 (Glyco HGB) [place] [address] [phone] Homocysteine <pending> Insulin Level <pending> Vitamin B12 And Folate 07/01/2019 [facility] Vitamin B12 < pending> Serum [address] [place] [address] [phone] Folic Acid (Folate) <pending> Laboratory test finding 07/01/2019 [facility] Vitamin B6 < pending> [address] [place] [address] [phone] Vitamin B1 (Whole Blood) <pending> Vitamin D Total 25(Oh) <pending> Zinc Serum <pending> TSH (Thyroid Stim Horm) <pending> Thyroxine <pending> Free T4 (Free Thyroxine) <pending> T3 Free <pending> T3 Reverse <pending> T3 Total <pending> Ferritin <pending> 1 SEE RESULT BELOW Name: CHERELLE BOOGIE : [address]: Yuriy Jaramillo MD Acct: [id number] Unit: [id number] AGE: 39 Location: [facility] Re11/01/19 SEX: F Status: REG REF SPEC: [id number] DYAN: [birth year][address] [facility] [address]: Yuriy Jaramillo MD REQ: [id number] RECD: 11/01/19070 STATUS: ADRIANA SALGADO DR: Rona Arredondo STANDARDS ENGINEER _ SOURCE: GAS ANTRUM SPDESC: ORDERED: Clotest Procedure Result Reported Site Clotest Final 11/02/19- 07 ML Clotest Negative * ML - Main Lab . END OF REPORT DEPARTMENT OF PATHOLOGY, [address] [place] [address] Rex Guy M.D. Director [facility] # [id number] 2 SEE RESULT BELOW Name: CHERELLE BOOGIE : [address]: Yuriy Jaramillo MD Acct: [id number] Unit: [id number] AGE: 39 Location: ENDO Re11/01/19 SEX: F Status: DEP REF SPEC: [id number] DYAN: 11/01/[address]: Yuriy Jaramillo MD REQ: [id number] RECD: 11/01/196 STATUS: CASSIE SALGADO DR: Rona Arredondo STANDARDS ENGINEER _ ORDERED: LEVEL 4/2 ADDENDUM An H. [...] CONTINUED ON NEXT PAGE DEPARTMENT OF PATHOLOGY, [address] [place] [address] Rex Guy M.D. Director [facility] # [id number] POST-OPERATIVE DIAGNOSIS EGD: larynx - normal; esophagus [...] 1232 END OF REPORT DEPARTMENT OF PATHOLOGY, [address] [place] [address] Rex Guy M.D. Director [facility] # [id number] 3 SEE RESULT BELOW Name: CHERELLE BOOGIE : [address]: Jerson Chatterjee MD Acct: [id number] Unit: [id number] AGE: 38 Location: [facility] Re10/17/19 SEX: F Status: REG REF SPEC: [id number] DYAN: 10/17/[address] [facility] [address]: Jerson Chatterjee MD REQ: [id number] RECD: 10/17/19 STATUS: SOUT _ ORDERED: TP IMAGE ANALYS, HPV/Thin Prep, HPV 16/18 GENE COMMENTS: [id number] FINAL DIAGNOSIS Negative for Intraepithelial lesion or [...] CONTINUED ON NEXT PAGE DEPARTMENT OF PATHOLOGY, [address] [place] [address] Rex Guy M.D. Director [facility] # [id number] CYTOLOGY PATIENT INFORMATION Patient Information: HPV: High risk HPV RNA testing regardless of pap results. HPV 16/18 Genotype Reflex Actual Specimen Date: 10/17/19 Last Menstrual Date: 10/08/19 ?: N Post Menopausal?: N Hysterectomy?: N Previous Abnormal Pap Smears?:N Signed by and Reported on: LIAM Donnelly (ASCP) 6002 This Pap test was evaluated with the assistance of the [employer] UKp Test Imaging System. Due to cytologic findings at the director pediatric microscope, comprehensive manual rescreening by a Yard Jacker may be required. The Pap Smear is [...] years. END OF REPORT DEPARTMENT OF PATHOLOGY, [address] [place] [address] Rex Guy M.D. Director [place] # [id number] 4 RESULT: No apparent monoclonal protein on serum electrophoresis. Test Performed by: [place] [address] Messenger Office: Danny Shah M.D. Ph.D.; CLIA# [id number] 5 This individual DOES have the Methylenetetrahydrofolate [...] therapy). If clinically indicated, suggest Coagulation Consultation 42814 (Thrombophila Profile) to complete the evaluation for an inherited or acquired thrombosing disorder (i.e., thrombophilia). Consider genetic consultation and counseling of potentially affected family members regarding laboratory testing. ADDITIONAL INFORMATION This test is a direct mutation analysis using PCR amplification, signal generation and release by cleavage of sequence specific alleles ([employer], [employer], [place], [place]). This test has been modified from the retail services professional's instructions. Its performance characteristics were determined by [facility] in a manner consistent with CLIA requirements. This test has not been cleared or approved by the U.S. Food and Drug Administration. 6 RESULT: Natalia Pruitt M.D. 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 MTHAC A5055W carriers are not at increased risk for thrombosis in the absence of hyperhomocysteinemia. In the absence of alternative causes, heterozygous carriers of MTHAC J9345C are not at increased risk for hyperhomocysteinemia. Hyperhomocysteinemia is a relatively weak risk factor for both venous thromboembolism and arterial thrombosis. The MTHAC P5653K gene mutation test does not detect other causes of hyperhomocysteinemia due to acquired disorders (renal failure, zinc deficiency, leukemia, psoriasis, or antifolate drug therapy). If clinically indicated, suggest Coagulation Consultation 46441 (Thrombophila Profile) to complete the evaluation for an inherited or acquired thrombosing disorder (i.e., thrombophilia). Consider genetic consultation and counseling of potentially affected family members regarding laboratory testing. ADDITIONAL INFORMATION This test is a direct mutation analysis using PCR amplification, signal generation and release by cleavage of sequence specific alleles ([employer], [employer], [place], [place]). This test has been modified from the retail services professional's instructions. Its performance characteristics were determined by [facility] in a manner consistent with CLIA requirements. This test has not been cleared or approved by the U.S. Food and Drug Administration. 8 RESULT: Natalia Pruitt M.D. This test is a direct mutation analysis using PCR amplification, signal generation and release by cleavage of sequence specific alleles ([employer], [employer], [place], [place]). This test has been modified from the retail services professional's instructions. Its performance characteristics were determined by [facility] in a manner consistent with CLIA requirements. This test has not been cleared or approved by the U.S. Food and Drug Administration. Test Performed by: [facility] - [address] [address] Messenger Office: Danny Shah M.D. Ph.D.; CLIA# [id number] 9 RESULT: ,05 REFERENCE VALUE Not Applicable 10 RESULT: 03:01,03:01 DQ Serologic Equivalent: 7,7 REFERENCE VALUE Not Applicable 11 The absence of HLA celiac permissive genes would make the presence of celiac disease unlikely. ADDITIONAL INFORMATION Method: Molecular typing of HLA antigens performed using reverse SSOP and/or SSP methods, reported as serological equivalents and low to medium resolution molecular values. Test Performed by: [facility] - [address] [address] Messenger Office: Danny Shah M.D. Ph.D.; CLIA# [id number] 12 ADDITIONAL INFORMATION This test was developed and its performance characteristics determined by [facility] in a manner consistent with CLIA requirements. This test has not been cleared or approved by the U.S. Food and Drug Administration. 13 ADDITIONAL INFORMATION This test was developed and its performance characteristics determined by [facility] in a manner consistent with CLIA requirements. This test has not been cleared or approved by the U.S. Food and Drug Administration. Test Performed by: [facility] [employer] [facility] [address] [place] [address] Messenger Office: Danny Shah M.D. Ph.D.; CLIA# [id number] 14 ADDITIONAL INFORMATION This test was developed and its performance characteristics determined by [facility] in a manner consistent with CLIA requirements. This test has not been cleared or approved by the U.S. Food and Drug Administration. Test Performed by: [facility] [place] [address] Messenger Office: Danny Shah M.D. Ph.D.; CLIA# [id number] 15 ADDITIONAL INFORMATION This test was developed and its performance characteristics determined by [facility] in a manner consistent with CLIA requirements. This test has not been cleared or approved by the U.S. Food and Drug Administration. Test Performed by: [facility] [place] [address] Messenger Office: Danny Shah M.D. Ph.D.; CLIA# [id number] 16 ADDITIONAL INFORMATION This test was developed and its performance characteristics determined by [facility] in a manner consistent with CLIA requirements. This test has not been cleared or approved by the U.S. Food and Drug Administration. Test Performed by: [facility] [place] [address] Messenger Office: Danny Shah M.D. Ph.D.; CLIA# [id number] 17 ADDITIONAL INFORMATION This test was developed and its performance characteristics determined by [facility] in a manner consistent with CLIA requirements. This test has not been cleared or approved by the U.S. Food and Drug Administration. Test Performed by: [facility] - [address] [place] [address] Messenger Office: Danny Shah M.D. Ph.D.; CLIA# [id number] 18 ADDITIONAL INFORMATION This test was developed and its performance characteristics determined by [facility] in a manner consistent with CLIA requirements. This test has not been cleared or approved by the U.S. Food and Drug Administration. 19 ADDITIONAL INFORMATION Testing performed by Inductively Coupled Plasma-Mass Spectrometry (ICP-MS). This test was developed and its performance characteristics determined by [facility] in a manner consistent with CLIA requirements. This test has not been cleared or approved by the U.S. Food and Drug Administration. 20 ADDITIONAL INFORMATION This test was developed and its performance characteristics determined by [facility] in a manner consistent with CLIA requirements. This test has not been cleared or approved by the U.S. Food and Drug Administration. 21 ADDITIONAL INFORMATION This test was developed and its performance characteristics determined by [facility] in a manner consistent with CLIA requirements. This test has not been cleared or approved by the U.S. Food and Drug Administration. 22 13 [employer] ([employer]) 23 Test Performed by: [facility] [place] [address] Messenger Office: Danny Shah M.D. Ph.D.; CLIA# [id number] 24 ADDITIONAL INFORMATION This test was developed and its performance characteristics determined by [facility] in a manner consistent with CLIA requirements. This test has not been cleared or approved by the U.S. Food and Drug Administration. Test Performed by: [facility] [place] [address] Messenger Office: Danny Shah M.D. Ph.D.; CLIA# [id number] 25 REFERENCE VALUE <=13 (Fasting) ADDITIONAL INFORMATION This test was developed and its performance characteristics determined by [facility] in a manner consistent with CLIA requirements. This test has not been cleared or approved by the U.S. Food and Drug Administration. Test Performed by: [facility] - [place] [address] Messenger Office: Danny Shah M.D. Ph.D.; CLIA# [id number] 26 REFERENCE VALUE <=1.0 (Negative) 27 REFERENCE VALUE <20.0 (Negative) 28 Tests for antibodies to dsDNA and JESSICA antigens are not performed automatically unless the MAX result is > or = 3.0 U. Studies performed at [facility] indicate that positive MXA results <3.0 U are rarely accompanied by positive second order tests. Test Performed by: [facility] [address] [place] [address] Messenger Office: Danny Shah M.D. Ph.D.; CLIA# [id number] 29 Therapeutic target for the treatment of diabetes mellitus patients is <7% HBA1C, and in selective patients <6.0%. Please refer to [place] [employer] diabetic care guidelines for further [...] possible) Procedures Date Code Description Status 11/01/2019 64548 Endoscopy Upper GI Biopsy Completed 11/01/2019 29392693 Colonoscopy Completed Medical Devices Description No Information Available Encounters Type Date Location Provider Dx Diagnosis Office Visit 12/02/2019 [facility] Jerson Chatterjee MD R10.32 Left lower 11:30a [facility] quadrant pain N94.6 Dysmenorrhea, unspecified N92.0 Excessive and frequent menstruation with regular cycle N80.9 Endometriosis, unspecified Office Visit 11/07/2019 11:00a [facility] Haider Camacho, S76.112A Strain of left at [place] M.D. 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 [facility] MD Sen exam (general) (routine) w/o abn findings R10.32 Left lower quadrant pain Office 10/07/2019 [facility] Trinh K21.0 Gastro-esophageal Visit 9:15a Trupti reflux disease with BowdenADRIANA eaton esophagitis D64.9 Anemia, unspecified R10.84 Generalized abdominal pain Office Visit 09/09/2019 11:00a [facility] Reji Lopez, M54.2 [facility] M62.838 Other muscle spasm M79.7 Fibromyalgia R70.0 Elevated erythrocyte sedimentation rate D50.9 Iron deficiency anemia, unspecified Office Visit 08/19/2019 9:00a [facility] Raquel Hernandez, G89.4 Chronic pain [facility] STANDARDS ENGINEER syndrome R53.82 Chronic fatigue, unspecified Office Visit 07/01/2019 8:00a [facility] Raquel Hernandez, R53.82 Chronic fatigue, [facility] STANDARDS ENGINEER unspecified G89.4 Chronic pain syndrome R14.0 Abdominal [...] Gastro-esophageal reflux disease with Trinh Bowden esophagitis STANDARDS ENGINEER 10/07/2019 D64.9 Anemia, unspecified Trinh Bowden NP [...] NP 08/19/2019 R53.82 Chronic fatigue, unspecified Raquel Hernandez, ADRIANA 07/01/2019 R53.82 Chronic fatigue, unspecified Raquel Hernandez, ADRIANA 07/01/2019 G89.4 Chronic pain syndrome Raquel Hernandez NP 07/01/2019 R14.0 Abdominal distension (gaseous) Raquel Hernandez NP 07/01/2019 N94.3 Premenstrual tension syndrome Raquel Hernandez, ADRIANA 07/01/2019 F41.9 Anxiety disorder, unspecified Raquel Hernandez NP Plan of Treatment Future Appointment(s):01/25/2020 8:00 am - Raquel Hernandez NP at [facility]02/22/2020 8:00 am - [facility]:30 am - Jerson Chatter[facility] at [facility]01/02/2020 3:45 pm - Yuriy Jaramillo MD at [facility] Kjhqzgwaanapplmo27/19/2020 - Reji Lopez, MDM62.838 Other muscle spasmNew Medication:Cyclobenzaprine HCL 5 mg - take 5mg at night before bedtimeNew Therapy:Physical TherapyFollow up:2 rlpxlfX53.7 FibromyalgiaComments:consider taper of zoloft and starting cymbalta or effexor Functional Status Description No Information Available Mental Status Description No Information Available Referrals Refer to Dr Reason for Referral Status Appt Date Yuriy Jaramillo MD History of gastric ulcer with ongoing GERD Sent 2018 symptoms and iron deficiency anemia; please evaluate and treat [address] [place] [address] [phone] Anastacio Hillman MD Sent 09/09/[address] [place] [address] [place] [address] [phone]
== END 2020-01-23 20:01 | disposition home or self-care (01) ==
LOC: UCEAST 18:39
DX: S61.012A Laceration without foreign body of left thumb without damage to nail, initial encounter (principal); W26.0XXA Contact with knife, initial encounter; Y93.G1 Activity, food preparation and clean up; Y92.9 Unspecified place or not applicable; Z88.0 Allergy status to penicillin; Z88.8 Allergy status to other drugs, medicaments and biological substances; Z91.048 Other nonmedicinal substance allergy status
CPT/HCPCS: 12001; 99212; G0463

== ENCOUNTER 2020-11-30 12:18 | Inpatient (IN) ==
[2020-11-30] MEDS ORDERED: Lactated Ringers 1000 ml BAG 1,000 ML IV ONE (12:43)
[2020-11-30 15:54] LABS: Urine Benzodiazepine Screen None Detected (None Detect); Urine Cannabinoids Screen None Detected (None Detect); Urine Opiates Screen None Detected (None Detect)
[2020-11-30] MEDS: ceFAZolin VIAL 1 GM in NS 0.9% 50 ML 50 ML IVPB SCH ×2 (21:51)
[2020-11-30 21:56] LABS: ABS Lymphocytes 1.5 10^3/ul (1.0-4.8); ABS Neutrophils 12.4 10^3/ul (1.5-7.7); Eosinophil % 0.1 %; Hematocrit 39 % (35-47); Hemoglobin 13.8 g/dL (12.0-16.0); Lymphocyte % 9.8 %; Mean Corpuscular HGB Conc 35 g/dL (31-36); Mean Corpuscular Hemoglobin 32 pg (27-31); Mean Corpuscular Volume 90 fL (80-97); Mean Platelet Volume 8.1 fL (7.4-10.4); Platelet Count 234 10^3/uL (150-450); Red Blood Count 4.34 10^6 /uL (3.70-4.87); Red Cell Distribution Width 14 % (10-15)
[2020-11-30 22:04] LABS: Urine Appearance Cloudy; Urine Bilirubin Negative (Negative); Urine Blood Negative (Negative); Urine Color Yellow; Urine Glucose Negative (Negative); Urine Ketones Negative (Negative); Urine Nitrite Negative (Negative); Urine Protein Negative (Negative); Urine Specific Gravity 1.015 (1.010-1.030); Urine Urobilinogen Negative (Negative)
[2020-11-30 22:12] LABS: Albumin 3.5 g/dL (3.2-5.2); Calcium 10.3 mg/dL (8.6-10.3); EGFR African American 126.6 (>60); EGFR Non-African American 104.7 (>60); Globulin 3.5 g/dL (2-4); Potassium 3.9 mmol/L (3.5-5.0); Total Bilirubin 0.2 mg/dL (0.2-1.0); Uric Acid 5.7 mg/dL (2.3-6.6)
[2020-11-30] MEDS ORDERED: fentaNYL 100 mcg/2 ml 50 MCG/ML VIAL IV SLOW PU ONE (22:18)
[2020-11-30] MEDS ORDERED: Albuterol HFA INHALER 8 gm MDI INH PRN (22:32)
[2020-11-30] MEDS ORDERED: Oxytocin in LR 20 UNITS/1,000 ML BAG IVPB ONE (23:16)
[2020-12-01] MEDS: Dibucaine 1% OINT 28.35 GM TUBE PR PRN (00:44)
[2020-12-01] MEDS: Witch Hazel PAD JAR TOPICAL PRN (00:44)
[2020-12-01] MEDS ORDERED: Lactated Ringers 1000 ml BAG 1,000 ML IV SCH (01:00)
[2020-12-01] MEDS ORDERED: Oxytocin in LR 20 UNITS/1,000 ML BAG IVPB SCH (01:00)
[2020-12-01 06:56] LABS: ABS Basophils 0.1 10^3/ul (0-0.2); ABS Lymphocytes 1.3 10^3/ul (1.0-4.8); ABS Neutrophils 12.1 10^3/ul (1.5-7.7); Eosinophil % 0.3 %; Hematocrit 30 % (35-47); Hemoglobin 10.5 g/dL (12.0-16.0); Lymphocyte % 9.1 %; Mean Corpuscular HGB Conc 35 g/dL (31-36); Mean Corpuscular Hemoglobin 32 pg (27-31); Mean Corpuscular Volume 92 fL (80-97); Mean Platelet Volume 8.4 fL (7.4-10.4); Nucleated Red Blood Cells % 0.1; Platelet Count 180 10^3/uL (150-450); Red Blood Count 3.31 10^6 /uL (3.70-4.87); Red Cell Distribution Width 14 % (10-15); White Blood Count 14.5 10^3/uL (3.5-10.8)
[2020-12-01] MEDS: ceFAZolin VIAL 1 GM in NS 0.9% 50 ML 50 ML IVPB SCH (13:11)
[2020-12-02] MEDS: Witch Hazel PAD JAR TOPICAL PRN (10:26)
[2020-12-03] MEDS: Dibucaine 1% OINT 28.35 GM TUBE PR PRN (11:45)
[2020-12-03] MEDS ORDERED: Ammonia Inhalant 1 EA AMP ONE (17:54)
[2020-12-03 20:19] VITALS: BP 130/73
== END 2020-12-03 21:45 | disposition home or self-care (01) | DRG 560 ==
LOC: MCHOBOUT 12:18 → MCHOB 12:55
PROVIDERS: ADMIT Midwife; ATTEND Midwife